=== PATIENT | male | born 1955 | race Caucasian/White ===

== ENCOUNTER → 2017-10-25 12:06 | Outpatient (CLI) | payer BC, SELFPAY ==
--- NOTE | 2017-10-25 12:17 | XR_ITS ---
XR knee RT 3V HISTORY: Right medial knee pain ITS.REASON: RT KNEE PAIN ORDERING PHYSICIAN: Ermelinda Tapia PATIENT AGE: 62 years COMPARISON: None FINDINGS: No fracture or dislocation. No lytic or blastic change. Normal mineralization. There are minimal osteoarthritic changes at the patellofemoral joint No other significant findings IMPRESSION: Minimal osteoarthritic change patellofemoral joint otherwise negative
== END ==
PROVIDERS: PCP Internal Medicine Adolescent Medicine; Visit Provider Nurse Practitioner Family
DX: M25.561 Pain in right knee (principal)
CPT/HCPCS: 73562

== ENCOUNTER 2017-12-19 11:00 | Outpatient (RCR) | payer BC, SELFPAY ==
--- NOTE | 2017-10-31 09:26 | HMH.PTOPEV ---
Rehab Outpatient Evaluation Rehab OP Evaluation Start: 10/30/17 09:29 Freq: Status: Active Protocol: Document 10/30/17 09:29 MEGHANA (Rec: 10/30/17 10:21 MEGHANA [id number]) Electronically Signed By Gurpreet Larios, PT 10/30/17 09:29 Outpatient Therapy Subjective History Subjective History Patient is a 62 year old male presenting to outpatient PT with reports of right knee pain of insidious onset starting approximately 6 months ago that has progressively gotten. No improvements with oral anti- inflammartories. Chief Complaint Pain Stiff Symptom Type Sharp Symptoms Relieved By Rest/Positioning OTC Meds Symptoms Aggravated By Standing Physical Activity Walking Prior Functional Limitations None Current Functional Limitations Housework Standing Squatting Recreation Activity Walking Stairs Bending/Stooping Symptom Description Constant but Variable Level of pain today (0-10) 0 Pain scale - at its best (0-10) 5 Pain scale - at its worst (0-10) 0 Hip/Knee Eval Gait Observation General Gait Pattern Observation Antalgic Gait Wide Based Gait Decrease Weight Bear (R) Assistive Device Assistive Devices None / NA Palpation Tenderness right Knee Palpation Finding Tenderness Knee Palpation Overall Comment Medial joint line MMT left Hip Strength Reason Not Measured WFL Knee Strength Reason Not Measured WFL right Hip Flexion Strength Grade 4 Good Hip Abduction Strength Grade 4 Good Hip Adduction Strength Grade 4- Good- Hip Extension Strength Grade 4- Good- Gluteus Travis Strength Grade 4- Good- Hip External Rotation Strength Grade 4- Good- Hip Internal Rotation Strength Grade 4- Good- Knee Extension Strength Grade 4 Good Knee Flexion Strength Grade 5 Normal Knee Extensors Muscle Tone Description Normal Knee Flexors Muscle Tone Description Normal ROM left Hip ROM Reason Not Measured Within Functional Limits Knee Extension Active Range of Motion ( -5 degrees) Knee Flexion Active Range of Motion ( 132 degrees) right Hip ROM Reason Not M
== END 2017-12-19 11:01 | disposition home or self-care (01) ==
LOC: PT 11:00
PROVIDERS: Family Provider Internal Medicine Adolescent Medicine; PCP Internal Medicine Adolescent Medicine; Visit Provider Internal Medicine Adolescent Medicine
DX: M25.561 Pain in right knee (principal)
CPT/HCPCS: 97010; 97014; 97110; 97164; G0283

== ENCOUNTER → 2018-09-23 07:07 | Outpatient (CLI) | payer MEDICARE, SELFPAY ==
[2018-09-23 07:52] LABS: Hemoglobin A1C 6.1 % (0.0-7.0)
[2018-09-23 08:32] LABS: Alanine Aminotransferase 44 U/L (12-78); Albumin Level 3.5 gm/dL (3.4-5.0); Albumin/Globulin Ratio 1.1 (1.1-1.8); Alkaline Phosphatase 48 U/L (46-116); Anion Gap 15.3 mEq/L (5-15); Aspartate Amino Transferase 16 U/L (15-37); Bilirubin,Total 0.4 mg/dL (0.2-1.0); Blood Urea Nitrogen 23 mg/dL (7-18); Carbon Dioxide 24 mmol/L (21.0-32.0); Chloride 102 mmol/L (98-107); Chol/HDL Ratio 3.6 (1-3.5); Cholesterol 154 mg/dL (140-200); Creatinine,Serum 1.09 mg/dL (0.70-1.30); Estimated Glomerular Filt Rate 68 ml/min (>60); GFR (African American) 82 ML/MIN (>60); Globulin 3.3 gm/dl (1.3-3.2); Glucose 109 mg/dL (74-106); HDL Cholesterol 43 mg/dL (27-67); LDL Cholesterol 88 mg/dL (0-130); Potassium 4.3 mmoL/L (3.5-5.1); Prostate Specific Ag Screen 0.6 ng/mL (0.0-4.0); Sodium 137 mmol/L (136-145); Total Protein,Serum 6.8 gm/dL (6.4-8.2); Triglycerides 116 mg/dL (30-200); VLDL Cholesterol 23 mg/dL (0-40)
[2018-09-24 10:17] LABS: Creatinine, Urine 101.5 mg/dL (Not Estab.); Microalbumin, Urine <3.0 ug/mL (Not Estab.)
== END ==
PROVIDERS: Visit Provider Nurse Practitioner Family
DX: E11.9 Type 2 diabetes mellitus without complications (principal); I10 Essential (primary) hypertension; Z12.5 Encounter for screening for malignant neoplasm of prostate; R35.1 Nocturia
CPT/HCPCS: 36415; 80053; 80061; 82043; 82570; 83036; G0103

== ENCOUNTER → 2018-10-11 13:26 | Outpatient (CLI) | payer MEDICARE, SELFPAY ==
[2018-10-11 13:52] LABS: Blood Urea Nitrogen 23 mg/dL (7-18); Creatinine,Serum 1.23 mg/dL (0.70-1.30); Estimated Glomerular Filt Rate 59 ml/min (>60); GFR (African American) 71 ML/MIN (>60)
--- NOTE | 2018-10-11 14:07 | CT_ITS ---
CT chest wo/w con HISTORY: Follow-up lung nodules ORDERING PHYSICIAN: Ermelinda Tapia PATIENT AGE: 63 years 719 COMPARISON: The May 02, 2016 CT chest with contrast. Also a September 2015 CT chest with contrast Technique: CT chest with and without contrast. Helical axial CT images of the chest pre and post IV contrast. 75 cc Isovue-370.. Sagittal and coronal reformatted images are also generated and reviewed. All CT scans at the facility use one or more dose reduction, viz: automated exposure control, ma/kV adjustment per patient size (including targeted exams where dose is matched to indication, i.e. head), or iterative reconstruction technique. FINDINGS: ...... LUNG TEIXEIRA. Stable with no no new areas of concern. Stable small nodular densities bilaterally RIGHT LUNG.: .Small 7.5 x less than 5 mm nodule right midlung (axial image 35 sagittal 29). Superior segment R LL located just inferior to major fissure. .Just inferior to this is a stable small less than 3.5 mm at posterior aspect superior segment RLL. Sagittal slice 27,.. .Extremely tiny 2 mm pleural-based tiny anterior RML, axial image 47.. No significant change .Calcified granuloma posterior RLL axial slice 52. Up to 7 mm size with some minimal scarring stable feature.. .Continuing inferior, at posterior sulcus (axial image 68) tiny 4 mm nodular density just on the right hemidiaphragm.-No significant change since prior study. LEFT LUNG. L UL: Tiny 3.5 mm 4 mm subpleural nodule axial slice 30. No significant change. The lingula there is a small 7 mm area of density axial image 41, 40 this reflects a linear area of scarring which appears stable since prior study as well There is a small 5 mm area of density at periphery left midlung axial image 43. Stable feature. Appears to be linear scarring on the MEDIASTINUM. No mediastinal mass nor adenopathy. No hilar adenopathy. Generous mediastinal adipose. Similar to previous study Heart normal size. Dense atherosclerotic coronary artery calcification multivessel-but most evident at LAD. No pericardial effusion. Aorta and pulmonary arteries appears satisfactory. No evidence of central PE. It JOSELITO: stable small nodes at the right suprahilar region, with tiny noted at the left mid joselito. PLEURA No pleural lesion. Airways appear satisfactory. BONE Osseous structures stable with no significant findings. Mild degenerative changes throughout the T-spine. UPPER ABDOMEN: . Fatty changes in liver. Adrenal glands appear stable generous but stable. No new findings IMPRESSION 1. Stable CT chest. Lungs clear with no active disease.. . Scattered small benign-appearing nodular densities bilaterally appear stable . Stable small hilar nodes on right appears stable ... No significant change since 2014 and 2016. 2. Mild diffuse fatty liver changes
== END ==
PROVIDERS: PCP Internal Medicine Adolescent Medicine; Visit Provider Nurse Practitioner Family
DX: R91.8 Other nonspecific abnormal finding of lung field (principal)
CPT/HCPCS: 36415; 71270; 82565; 84520; Q9967

== ENCOUNTER → 2020-02-09 11:35 | Outpatient (CLI) | payer MEDICARE, SELFPAY ==
[2020-02-09 13:36] LABS: Alanine Aminotransferase 50 U/L (12-78); Albumin Level 4.3 g/dl (3.5-5.0); Albumin/Globulin Ratio 1.6 (1.1-1.8); Alkaline Phosphatase 52 U/L (38-126); Anion Gap 13.4 mEq/L (5-15); Aspartate Amino Transferase 30 U/L (17-59); Bilirubin,Total 0.4 mg/dl (0.2-1.3); Blood Urea Nitrogen 18 mg/dl (9-20); Calcium 10.1 mg/dl (8.4-10.2); Carbon Dioxide 24 mmol/L (22.0-30.0); Chloride 102 mmol/L (98-107); Chol/HDL Ratio 1.9 (1-3.5); Cholesterol 103 mg/dl (140-200); Estimated Glomerular Filt Rate 84 ml/min (>60); GFR (African American) 102 ML/MIN (>60); Globulin 2.7 g/dL (1.3-3.2); Glucose 113 mg/dl (74-100); HDL Cholesterol 55 mg/dl (40-60); Potassium 4.4 mmoL/L (3.5-5.1); Sodium 135 mmol/L (136-145); Triglycerides 96 mg/dl (30-150); VLDL Cholesterol 19 mg/dL (0-40)
[2020-02-09 13:47] LABS: Direct LDL Cholesterol 49.91 mg/dL (100-129)
[2020-02-09 14:07] LABS: Prostate Specific Ag Screen 0.8 ng/ml (0.0-4.0)
[2020-02-09 18:43] LABS: Hemoglobin A1C 5.9 % (4.0-6.0)
[2020-02-09 20:19] LABS: Basophils # 0.1 K/mm3 (0-0.2); Basophils % 0.7 % (0.1-2.0); Eosinophils # 0.1 K/mm3 (0.0-0.4); Eosinophils % 0.9 % (0.1-12.0); Hematocrit 46.1 % (42.0-52.0); Hemoglobin 15.1 g/dL (14.1-18.0); Lymphocytes # 2.8 K/mm3 (0.7-4.5); Lymphocytes % 25.3 % (10-50); Mean Corpuscular HGB Conc 32.8 g/dL (31.8-35.4); Mean Corpuscular Hemoglobin 30.9 pg (27.0-31.2); Mean Corpuscular Volume 94.2 fl (80-94); Mean Platelet Volume 9.5 fl (7.4-10.4); Monocytes # 0.6 K/mm3 (0.1-1.0); Monocytes % 5.8 % (1.7-9.3); Neutrophils # 7.4 K/mm3 (1.8-7.8); Neutrophils % 67.4 % (37.0-80.0); Platelet Count 321 K/mm3 (142-424); Red Blood Count 4.89 M/mm3 (4.60-6.20); Red Cell Distribution Width 13.1 % (11.5-17.5); White Blood Count 10.9 K/mm3 (4.8-10.8)
== END ==
PROVIDERS: Visit Provider Nurse Practitioner Family
DX: R73.03 Prediabetes (principal); I10 Essential (primary) hypertension; E66.01 Morbid (severe) obesity due to excess calories; K21.9 Gastro-esophageal reflux disease without esophagitis; R35.1 Nocturia; Z12.5 Encounter for screening for malignant neoplasm of prostate
CPT/HCPCS: 36415; 80053; 80061; 83036; 84443; 85025; G0103

== ENCOUNTER → 2020-02-12 12:52 | Outpatient (CLI) | payer MEDICARE, SELFPAY ==
--- NOTE | 2020-02-12 12:56 | CT_ITS ---
PROCEDURE: CT LUNG SCREENING CLINICAL INDICATION: H/O NICOTINE DEPENDENCE Thirty pack-year smoking history, asymptomatic for lung cancer COMPARISON: CHESTWW CT chest wo/w con from 10/11/2018 TECHNIQUE: The exam was performed on a [employer] Speed [address] scanner using 2.90 mGy CTDI. A low dose helical CT CHEST was performed on a multi-detector scanner. All CT scans at the facility use one or more dose reduction, viz: automated exposure control, ma/kV adjustment per patient size (including targeted exams where dose is matched to indication, i.e. head), or iterative reconstruction technique. The LDCT was performed in a facility that meets the criteria for the screening program. Data regarding this exam was submitted to ACR which is an approved registry. The order for this exam indicates that it came as a result of a lung cancer screening counseling shard decision-making visit that included all the elements required of such a visit including smoking cessation. The radiologist interpreting this exam meets the CMS criteria for the LDCT lung cancer screening program. The exam is reported using the Lung-RADS classification scale and reported to the ACR registry. NOTE: This study was performed for the specific purposes of lung cancer screening and is not an alternative to diagnostic chest CT. RADIATION DOSE: CTDI vol(CT dose Index-volume) = 2.90mG DLP (Dose Length Product) = 100.29 mGcm FINDINGS: 5 mm noncalcified nodule superior segment right lower lobe series 4, image 36 unchanged. 4 mm noncalcified nodule right middle lobe series 4, image 47 unchanged there are 2 stable nodules in the right lung base posteriorly 5 mm each image 63 and image 67 series 4 unchanged. Calcified granuloma right lower lobe posteriorly 8 mm parenchymal opacity within the lingula series 4, image 40 unchanged. 3 mm fissural nodule superiorly on the left image 20 unchanged. 5 mm noncalcified nodule left lower lobe image 45 series 4 unchanged with an adjacent 3 mm nodule on the same image unchanged. Subpleural opacity left lower lobe posteriorly unchanged No suspicious nodules apparent. No new nodules OTHER FINDINGS: Coronary artery calcification IMPRESSION: Lung rads category 2 benign. Stable multiple benign-appearing nodules Recommend continued annual screening LD CT. Coronary artery disease Dictated by: Timi Palmer MD 03/04/2020 08:47 Electronically signed by Timi Palmer MD in [place] 03/04/2020 08:47
== END ==
PROVIDERS: PCP Nurse Practitioner Family; Visit Provider Nurse Practitioner Family
DX: Z87.891 Personal history of nicotine dependence (principal); Z12.2 Encounter for screening for malignant neoplasm of respiratory organs

== ENCOUNTER → 2020-10-06 07:15 | Outpatient (CLI) | payer MEDICARE, SELFPAY ==
[2020-10-06 07:46] LABS: Adenovirus,PCR Not Detected (NotDetected); Bordetella Pertussis Not Detected (NotDetected); Chlamydophila Pneumoniae, PCR Not Detected (NotDetected); Coronavirus 19, PCR Not Detected (NotDetected); Coronavirus 229E Not Detected (NotDetected); Coronavirus NL63 Not Detected (NotDetected); Coronavirus OC43 Not Detected (NotDetected); Coronovirus HKU1,PCR Not Detected (NotDetected); Human Metapneumovirus Not Detected (NotDetected); Influenza A, PCR Not Detected (NotDetected); Influenza AH1, 2009 Not Detected (NotDetected); Influenza AH1, PCR Not Detected (NotDetected); Influenza AH3,PCR Not Detected (NotDetected); Influenza B, PCR Not Detected (NotDetected); Mycoplasma Pneumoniae, PCR Not Detected (NotDetected); Parainfluenza 1, PCR Not Detected (NotDetected); Parainfluenza 2, PCR Not Detected (NotDetected); Parainfluenza 3, PCR Not Detected (NotDetected); Parainfluenza 4, PCR Not Detected (NotDetected); Respiratory Syncytial Virus Not Detected (NotDetected); Rhinovirus/Enterovirus Not Detected (NotDetected)
== END ==
PROVIDERS: PCP Nurse Practitioner Family; Visit Provider Internal Medicine Adolescent Medicine
DX: Z03.818 Encounter for observation for suspected exposure to other biological agents ruled out (principal)
CPT/HCPCS: 87581; 87633; 87798

== ENCOUNTER → 2021-04-05 09:29 | Outpatient (POV) | payer MEDICARE, SELFPAY | PROVIDERS: Visit Provider Dermatology | DX: Z00.00 Encounter for general adult medical examination without abnormal findings (principal) ==

== ENCOUNTER → 2021-05-17 07:09 | Outpatient (CLI) | payer MEDICARE, SELFPAY ==
[2021-05-17 07:37] LABS: Basophils # 0.1 K/mm3 (0-0.2); Basophils % 0.6 % (0.1-2.0); Eosinophils # 0.2 K/mm3 (0.0-0.4); Eosinophils % 1.9 % (0.1-12.0); Hematocrit 40.2 % (42.0-52.0); Hemoglobin 13.8 g/dL (14.1-18.0); Lymphocytes # 4.4 K/mm3 (0.7-4.5); Lymphocytes % 49.2 % (10-50); Mean Corpuscular HGB Conc 34.4 g/dL (31.8-35.4); Mean Corpuscular Hemoglobin 32.1 pg (27.0-31.2); Mean Corpuscular Volume 93.3 fl (80-94); Mean Platelet Volume 7.9 fl (7.4-10.4); Monocytes # 0.6 K/mm3 (0.1-1.0); Monocytes % 6.5 % (1.7-9.3); Neutrophils # 3.8 K/mm3 (1.8-7.8); Neutrophils % 41.8 % (37.0-80.0); Platelet Count 259 K/mm3 (142-424); Red Blood Count 4.31 M/mm3 (4.60-6.20); Red Cell Distribution Width 13.6 % (11.5-17.5)
[2021-05-17 08:01] LABS: Hemoglobin A1C 5.8 % (4.0-6.0)
[2021-05-17 08:47] LABS: Alanine Aminotransferase 28 U/L (12-78); Albumin/Globulin Ratio 1.7 (1.1-1.8); Alkaline Phosphatase 54 U/L (38-126); Anion Gap 13.7 mEq/L (5-15); Aspartate Amino Transferase 23 U/L (17-59); Bilirubin,Total 0.8 mg/dl (0.2-1.3); Blood Urea Nitrogen 19 mg/dl (9-20); Calcium 9.3 mg/dl (8.4-10.2); Carbon Dioxide 27 mmol/L (22.0-30.0); Chloride 102 mmol/L (98-107); Chol/HDL Ratio 2.9 (1-3.5); Cholesterol 110 mg/dl (140-200); Estimated Glomerular Filt Rate 84 ml/min (>60); GFR (African American) 102 ML/MIN (>60); Globulin 2.4 g/dL (1.3-3.2); Glucose 115 mg/dl (74-100); HDL Cholesterol 38 mg/dl (40-60); Potassium 4.7 mmoL/L (3.5-5.1); Sodium 138 mmol/L (136-145); Total Protein,Serum 6.4 g/dl (6.3-8.2); Triglycerides 138 mg/dl (30-150); VLDL Cholesterol 28 mg/dL (0-40)
[2021-05-17 09:18] LABS: Prostate Specific Ag Screen 0.9 ng/ml (0.0-4.0)
== END ==
PROVIDERS: Visit Provider Nurse Practitioner Family
DX: I10 Essential (primary) hypertension (principal); R73.03 Prediabetes; K21.9 Gastro-esophageal reflux disease without esophagitis; G47.33 Obstructive sleep apnea (adult) (pediatric); R35.1 Nocturia; Z12.5 Encounter for screening for malignant neoplasm of prostate
CPT/HCPCS: 36415; 80053; 80061; 83036; 85025; G0103

== ENCOUNTER → 2021-07-28 09:05 | Outpatient (CLI) | payer MEDICARE, SELFPAY ==
--- NOTE | 2021-07-28 09:09 | XR_ITS ---
PROCEDURE: XR SHOULDER RT MIN 2V CLINICAL INDICATION: RT ANTERIOR SHOULDER PAIN COMPARISON: CT CHESTWW CT chest wo/w con from 10/11/2018 FINDINGS: No fracture or dislocation. No lytic or blastic change. There is normal mineralization. Osteoarthritic changes are present at the acromioclavicular joint with small osteophytes at the AC joint inferiorly. Minimal osteoarthritic changes are present at the glenohumeral joint. Other findings:Small calcifications are noted in the supraclavicular region medially. IMPRESSION: Acromioclavicular arthropathy and mild glenohumeral arthropathy otherwise negative Dictated by: Timi Palmer MD 07/28/2021 09:25 Timi Palmer MD in [place] 07/28/2021 09:25
== END ==
PROVIDERS: PCP Nurse Practitioner Family; Visit Provider Nurse Practitioner Family
DX: M25.511 Pain in right shoulder (principal)
CPT/HCPCS: 73030

== ENCOUNTER → 2022-03-14 09:38 | Outpatient (POV) | payer MEDICARE, SELFPAY | PROVIDERS: Visit Provider Dermatology | DX: Z00.00 Encounter for general adult medical examination without abnormal findings (principal) ==

== ENCOUNTER → 2022-05-22 12:59 | Outpatient (CLI) | payer MEDICARE, SELFPAY ==
--- NOTE | 2022-05-22 13:05 | XR_ITS ---
FINAL REPORT CLINICAL HISTORY: RT HIP PAIN for a year FINDINGS: RIGHT HIP Two views of the right hip with an AP of the pelvis demonstrate no acute fracture or dislocation. There is mild degenerative change of both hips and the lower lumbar spine. The visualized bony structures are well aligned. There are mild vascular calcifications. IMPRESSION: Mild degenerative change with no acute bony abnormality. Reviewed, Interpreted and Dictated by Abhinav Schulz III, MD Transcribed by Aurora Faulkner Authenticated and [facility]
--- NOTE | 2022-05-22 13:05 | XR_ITS ---
FINAL REPORT CLINICAL HISTORY: RT KNEE PAIN, lateral knee pain COMPARISON: October 25, 2017 FINDINGS: Three views of the right knee reveal no evidence of fracture or dislocation. The bony alignment is normal. There is mild patellofemoral degenerative change. There is no evidence of joint effusion. No localized soft tissue abnormality is identified. IMPRESSION: Mild patellofemoral degenerative change. Reviewed, Interpreted and Dictated by Abhinav Schulz III, MD Transcribed by Aurora Faulkner Authenticated and [facility]
== END ==
PROVIDERS: PCP Nurse Practitioner Family; Visit Provider Nurse Practitioner Family
DX: M25.551 Pain in right hip (principal); M25.561 Pain in right knee
CPT/HCPCS: 73502; 73562

== ENCOUNTER → 2022-06-02 08:13 | Outpatient (CLI) | payer MEDICARE, SELFPAY ==
--- NOTE | 2022-06-02 08:18 | CT_ITS ---
FINAL REPORT CLINICAL HISTORY: PERSONAL HISTORY OF [place] USE, FORMER SMOKER, QUIT X 5 YRS AGO, SMOKED 1 PK PER DAY X 20 YRS COMPARISON: 02/12/2020 FINDINGS: Low-Dose Chest CT CTDI vol (mGy): 2.90 DLP (mGy-cm): 107.59 Axial images were obtained from the lung apex to the mid abdomen by computed tomography. Low-dose protocol was utilized. FINDINGS: CHEST: There is no axillary adenopathy. There is no hilar or mediastinal adenopathy. There is moderate to severe coronary artery calcification, stable. The heart is proper size. There is no pericardial or pleural effusion. Limited images of the upper abdomen demonstrate fatty infiltration of the liver. Lung window images demonstrate a 7 mm nodule in the anterior right lower lobe on image 41 that previously measured 7 mm. A stable 4 mm nodule is again seen in the right middle lobe on image 53. There is a 7 mm stable nodule in the lateral left lower lobe on image 52. There are multiple other small nodules that are all visually stable. There is mild scarring. There are no new masses or pulmonary nodules. IMPRESSION: S modifier: Moderate to severe coronary artery calcification. Lung RADS category 1S. Recommend 12 month follow-up low-dose chest CT. Reviewed, Interpreted and Dictated by Abhinav Schulz III, MD Transcribed by Fuentes Mix Authenticated and [facility]
== END ==
PROVIDERS: PCP Nurse Practitioner Family; Visit Provider Nurse Practitioner Family
DX: Z87.891 Personal history of nicotine dependence (principal); Z12.2 Encounter for screening for malignant neoplasm of respiratory organs
CPT/HCPCS: 71271

== ENCOUNTER → 2022-06-29 06:19 | Outpatient (CLI) | payer MEDICARE, SELFPAY ==
--- NOTE | 2022-06-29 | CA_ITS ---
APPROVED REPORT Exam: Pharmacologic Technologist: Sarah Cuellar, Ht: 5 ft 8 in Wt: 260 lbs BSA: 2.28 m2 HR: 57 bpm BP: 167/75 mmHg Medical History Medications: Pantoprazole,,,,, Atorvastatin,,,,, BisOPROLOL,,,,, Potassium,,,,, Lisinopri/HCTZ,,,,, Stress Test Details Test: LEXISCAN Reason for pharmacologic stress test: physical limitation. HR Resting HR: 56 bpm Max Heart Rate (APMHR): 151.293396 bpm Max HR Achieved: 91 bpm Target HR (85% APMHR): 128.427112 bpm % of APMHR: 60.26 Recovery HR: 74 bpm BP Resting BP: 167.0/75.0 mmHg Max BP: 181.0/72.0 mmHg Recovery BP: 175.0/74.0 mmHg ECG Resting ECG: Sinus juanjo, low voltage QRS Clinical Exercise duration: 04:03 min Highest Stage Achieved: Exercise capacity: 1.0 METs Stress ECG Conclusion Did not take AM meds Symptoms: Chest pressure, SOA, stomach & head discomfort. Arrhythmias/Ectopy: Rare PVC. ST-T Changes: No significant changes. Conclusion: Unremarkable Lexiscan stress. Myoview images reported separately. Test Summary RECOVERY 03:42 . . 70 . 175/ 74 . . REST 04:54 . . 56 . 167/ 75 . . Stage 1 01:00 . . 77 . . . . Stage 2 01:00 . . 88 . . . . Stage 3 01:00 . . 83 . 177/ 75 . . Stage 4 01:00 . . 76 . 167/ 72 . . Stage 4 01:03 . . 77 . 167/ 72 . Stop exercise at 04:03 RECOVERY 01:00 . . 79 . 171/ 76 . . RECOVERY 02:00 . . 76 . 171/ 76 . . RECOVERY 03:00 . . 74 . 170/ 77 . . RECOVERY 03:42 . . 70 . 175/ 74 . . Electronically signed by : Ayaan Steinberg MD 06/30/2022 08:28:59
--- NOTE | 2022-06-29 06:30 | NM_ITS ---
APPROVED REPORT Exam: Nuclear Stress Test Indication: short of breath Patient Location: Outpatient Stress Tech: Sarah Tello SC Tech:TITA Sheikh RT(R)(N) Ht: 5 ft 8 in Wt: 250 lbs HR: 56 bpm BP: 167/75 mmHg BSA: 2.25 m2 TID: 1.24 BMI: 38.0 History: short of breath Procedure: Patient received a 0.4 mg of intravenous Lexiscan, resting heart rate 56 bpm, resting blood pressure 167/75 mmHg, with Lexiscan maximum heart rate achived was 91 bpm which is Less than 85 % of the maximum predicted heart rate and blood pressure was 181/72 mmHg. With Lexiscan, patient denied any complaint of chest pain. Electrocardiogram Resting electrocardiogram shows sinus rhythm, with Lexiscan there is less than 1.[address] segment depression noted from the baseline EKG. The EKG portion of the Lexiscan is nondiagnostic. Cardiac Stress and Resting SPECT Images: Cardiac Stress and Resting SPECT images were obtained using technetium 99m Myoview 30.9 mCi stress and 9.84 mCi at rest. Gated SPECT analysis of segmental wall motion and calculation of the ejection fraction also done. Prone images were also obtained. Cardiac stress and rest SPECT images show uniform myocardial activity without segmental perfusion abnormality, computer derived ejection fraction is 58% with no regional wall motion abnormality, right ventricle is normal size and contractility. Conclusion: 1. The EKG portion of the Lexiscan is nondiagnostic. 2. No scintigraphic evidence of reversible ischemia seen, computer derived ejection fraction is 58% with no regional wall motion abnormality, right ventricle is normal size and contractility. 3. Normal Lexiscan Myoview study. Electronically signed by : Ayaan Steinberg MD 06/30/2022 08:31:35
== END ==
PROVIDERS: PCP Nurse Practitioner Family; Visit Provider Nurse Practitioner Family
DX: R06.02 Shortness of breath (principal); I25.10 Atherosclerotic heart disease of native coronary artery without angina pectoris
CPT/HCPCS: 78452; 93017; A9502; J2785

== ENCOUNTER → 2022-07-15 08:10 | Outpatient (CLI) | payer MEDICARE, SELFPAY | PROVIDERS: PCP Nurse Practitioner Family; Visit Provider Surgery | DX: Z01.812 Encounter for preprocedural laboratory examination (principal); Z20.822 Contact with and (suspected) exposure to COVID-19; Z12.11 Encounter for screening for malignant neoplasm of colon | CPT/HCPCS: C9803; U0003; U0005 ==

== ENCOUNTER 2022-07-18 07:47 | Day surgery (SDC) | payer MEDICARE, SELFPAY ==
[2022-07-17 08:31] VITALS: BMI 38.7
[2022-07-18 07:57] VITALS: BP 147/71; PULSE 59; RESP 18; TEMP 36.6; O2SAT 94
--- NOTE | 2022-07-18 08:22 | EXP.ANES.CKL ---
PFSH PFSH Medical History Hyperlipidemia Hypertension Skin cancer Surgical History History of appendectomy History of hernia surgery History of rotator cuff surgery Hx of carpal tunnel repair Hx of cataract surgery Family History Father Family history of myocardial infarction Social History Smoking Status: Never smoker alcohol intake: never substance use type: denies use current occupational status: other Travel in the last 8 weeks: None caffeine: Yes [facility] Anesthesia Checklist Patient Identification Patient Identification: Arm Band Structural Data Admitted From: Home Planned Operative Procedure/s: colonoscopy Consent for Planned Operative Procedure(s) Verified: Yes Verified Documents: Surgical Consent and History and Physical NPO Status Verified Time NPO: 00:00 Additional verifications Anesthesia Reactions: No Airway Assessment C-Spine Mobility Assessed: Yes TMJ Mobility Assessed: Yes Dentition: Good Dentition Neurological Assessment Level of Consciousness: Awake and Alert Anesthesia Plan Anesthesia Risk discussed: Yes Anesthesia Plan: Verified ASA Class: II Anesthesia Type: MAC
[2022-07-18 08:46] VITALS: O2SAT 94
--- NOTE | 2022-07-18 08:58 | EXP.ANES.I ---
[facility] Anesthesia Record Part I Anesthesia Record I Intake, IV Amount: 1,400 Estimated blood loss (mL): 1,200 Urine output (mL): 100 Blood Products used (#): none Blood Pressure: 168/95 SaO2: 97 Pulse Rate: 102 Respiratory Rate: 16 Temperature: 97 F Patient is:: Awake and Stable Stable to PACU at:: 08:50
--- NOTE | 2022-07-18 09:29 | HMH.SCOPE ---
Procedure: Date: 07/18/22 Patient Date of :: 1955 Procedure Performed:: Colonoscopy with polypectomy Indications:: History of polyps Performing Provider:: Eliazar Dowling MD Referring Provider:: . Sedation:: Monitored anesthesia care Procedure:: After informed consent was obtained the patient was taken to the endoscopy suite. Sedation ensued after the patient was transferred to the left lateral decubitus position. Pulse, blood pressure, and oxygen saturation were monitored throughout the procedure. Digital rectal exam revealed no significant abnormality. The colonoscope was placed in position. The entire colon was evaluated. The colonoscope was carefully removed and the patient was transferred to recovery in stable condition. Please see findings and specimens below for detail. Findings:: Bowel preparation moderate Profound lack of relaxation Scattered sigmoid diverticulosis Multiple hyperplastic-appearing polyps throughout rectum and sigmoid colon Polyps (see specimens) Specimens:: Transverse colon polyp (cold snare) Polyp at 60 cm (cold snare) Recommendations:: Timing of repeat colonoscopy is pending pathology but likely be between 2-3 years. Consider barium enema in near future secondary to profound lack of relaxation. Complications:: No immediate Estimated blood obtained (mL): 1
[2022-07-18 09:37] VITALS: BP 118/68; PULSE 65; RESP 16; TEMP 36.6; O2SAT 91
[2022-07-18 09:47] VITALS: BP 137/78; PULSE 60; RESP 16; TEMP 36.6; O2SAT 93
[2022-07-18 09:57] VITALS: BP 144/65; PULSE 68; RESP 16; TEMP 36.6; O2SAT 95
[2022-07-18 10:07] VITALS: BP 150/75; PULSE 56; RESP 16; TEMP 36.6; O2SAT 94
== END 2022-07-18 10:07 | disposition home or self-care (01) ==
PROVIDERS: PCP Nurse Practitioner Family; Visit Provider Surgery
PROC: 0DJD8ZZ Inspection of Lower Intestinal Tract, Via Natural or Artificial Opening Endoscopic (ICD-10-PCS; principal; 2022-07-18 09:00)
DX: Z12.11 Encounter for screening for malignant neoplasm of colon (principal); Z86.010 Personal history of colon polyps; K63.5 Polyp of colon; Z79.899 Other long term (current) drug therapy
CPT/HCPCS: 45385; J2704

== ENCOUNTER → 2022-09-26 09:33 | Outpatient (POV) | payer MEDICARE, SELFPAY | PROVIDERS: Visit Provider Dermatology | DX: Z00.00 Encounter for general adult medical examination without abnormal findings (principal) ==

== ENCOUNTER → 2022-09-27 09:42 | Outpatient (CLI) | payer MEDICARE, SELFPAY ==
--- NOTE | 2022-09-27 09:47 | FL_ITS ---
FINAL REPORT CLINICAL HISTORY: . unsuccessful colonscopy 5:03 fluoro time FINDINGS: BARIUM ENEMA HISTORY: Incomplete colonoscopy. PROCEDURE: Single-contrast barium was introduced by gravity drip. Spot and overhead films were obtained. FINDINGS: Filteration Operator film is unremarkable. Examination is limited secondary to air within the colon and poor distention. There is moderate diverticulosis of the distal colon. Otherwise, no constricting lesion is identified. The patient has an incompetent ileocecal valve. IMPRESSION: Diverticulosis without constricting lesion identified. FLUOROSCOPY TIME: 5 minutes 3 seconds. 15 radiographs were obtained. Films reviewed , interpreted and dictated by Dr. Schulz. Transcribed by Estuardo Knowles PA-C. Reviewed, Interpreted and Dictated by Abhinav Schulz III, MD Transcribed by ELIZABETH Contreras Authenticated and [facility]
== END ==
PROVIDERS: PCP Nurse Practitioner Family; Visit Provider Surgery
DX: Z86.010 Personal history of colon polyps (principal); Z98.890 Other specified postprocedural states
CPT/HCPCS: 74270

== ENCOUNTER → 2023-01-05 12:53 | Outpatient (CLI) | payer MEDICARE, SELFPAY ==
--- NOTE | 2023-01-05 13:01 | MR_ITS ---
FINAL REPORT CLINICAL HISTORY: PSIN IN RIGHT KNEE RIGHT KNEE PAIN X 1 MONTH FINDINGS: Multi planar MR imaging was performed of the right knee. The anterior and posterior cruciate ligaments are intact. The quadriceps and patellar tendons are intact. The medial and lateral menisci are intact without evidence of tear. The medial and lateral collateral ligaments appear intact. The medial and lateral retinacula appear intact. There is no evidence of bone marrow edema or osteochondral defect. No evidence of soft tissue inflammatory reaction. IMPRESSION: No evidence of significant internal derangement. Reviewed, Interpreted and Dictated by Theron Granados MD Transcribed by Yoselin Alas Authenticated and [facility]
== END ==
PROVIDERS: PCP Nurse Practitioner Family; Visit Provider Nurse Practitioner Family
DX: M25.561 Pain in right knee (principal); M25.361 Other instability, right knee; G89.29 Other chronic pain
CPT/HCPCS: 73721

== ENCOUNTER → 2023-01-30 13:56 | Outpatient (CLI) | payer MEDICARE, SELFPAY ==
--- NOTE | 2023-01-30 13:59 | XR_ITS ---
FINAL REPORT CLINICAL HISTORY: Hip pain FINDINGS: Right hip Four views were obtained. There is no acute fracture or dislocation. There are mild degenerative changes. Mild vascular calcification is identified. IMPRESSION: Mild degenerative changes. Reviewed, Interpreted and Dictated by Abhinav Schulz III, MD Transcribed by May Michaels Authenticated and [facility]
== END ==
PROVIDERS: PCP Nurse Practitioner Family; Visit Provider Orthopaedic Surgery
DX: M25.551 Pain in right hip (principal)
CPT/HCPCS: 73502

== ENCOUNTER → 2023-06-22 13:38 | Outpatient (CLI) | payer MEDICARE, SELFPAY ==
--- NOTE | 2023-06-22 13:44 | CA_ITS ---
FINAL REPORT TECHNIQUE: Color Doppler, duplex Doppler and compression sonography of the left lower extremity deep venous systems was performed. CLINICAL HISTORY: REDNESS/PAIN LT PROXIMAL FOLEY,S/P BACK SURGERY 2 WKS AGO,EDEMA COMPARISON: None FINDINGS: There is no evidence of deep venous thrombosis from the level of the groin to the calf. The veins are patent and compressible. There is a superficial thrombophlebitis seen in the proximal left foley in the area of complaint. IMPRESSION: No evidence of deep venous thrombosis left lower extremity. Superficial thrombophlebitis proximal left foley. Reviewed, Interpreted and Dictated by Abhinav Schulz III, MD Transcribed by Rosa Person Authenticated and . [facility]
== END ==
PROVIDERS: PCP Nurse Practitioner Family; Visit Provider Internal Medicine Adolescent Medicine
DX: R60.0 Localized edema (principal)
CPT/HCPCS: 93971

== ENCOUNTER → 2023-08-06 13:50 | Outpatient (CLI) | payer MEDICARE, SELFPAY ==
--- NOTE | 2023-08-06 13:54 | CT_ITS ---
FINAL REPORT CLINICAL HISTORY: TOBACCO USE FORMER SMOKER , QUIT 5 YEARS AGO, 1PPD X50 YEARS COMPARISON: 06/02/2022 FINDINGS: CTDI vol (mGy): 2.90 DLP: 96.[address] images of the chest were obtained using the low-dose protocol for screening. There is no evidence of mediastinal or hilar mass or adenopathy. No axillary mass or adenopathy is identified. On the lung window images, multiple nodules are again seen including 1 near the right major fissure measuring 7 mm on image 36, a nodule just inferolateral to this measuring 4 mm on image 40 and a lateral left lower lobe nodule measuring 6 mm on image 42. All of which are stable from prior exam. There are several other smaller stable nodules. Severe left coronary artery calcifications are noted. IMPRESSION: Stable bilateral pulmonary nodules and severe left coronary artery calcifications. Lung RADS category 1S . Recommend 12 month followup low-dose CT for further evaluation. Reviewed, Interpreted and Dictated by Abhinav Schulz III, MD Transcribed by Yoselin Alas Authenticated and [facility]
== END ==
PROVIDERS: PCP Nurse Practitioner Family; Visit Provider Nurse Practitioner Family
DX: Z87.891 Personal history of nicotine dependence (principal)
CPT/HCPCS: 71271

== ENCOUNTER 2023-12-07 17:43 | Emergency (ER) | payer MEDICARE, SELFPAY ==
--- NOTE | 2023-12-07 18:20 | EXP.UTC ---
Discharge Plan Disposition Patient Disposition: Home, Self-Care Condition: Good Prescriptions Prescriptions: New azithromycin [Zithromax] 250 mg tablet 250 mg PO UD DOSE PK Qty: 6 0RF Rx Instructions: Take two (2) tablets today, then one (1) tablet days #2 thru #5 benzonatate [benzonatate] 100 mg capsule 100 mg PO TIDP PRN (Reason: Cough) Qty: 30 0RF methylprednisolone 4 mg Tablets,Dose Pack 4 mg PO DIRECTED 6 Days Qty: 21 0RF Rx Instructions: Take 1 pack as directed for 6 days guaifenesin [Mucinex] 600 mg tablet extended release 12hr 600 - 1,200 mg PO BIDP PRN (Reason: Congestion) Qty: 30 0RF No Action pantoprazole 40 mg tablet,delayed release (DR/EC) 40 mg PO DAILY metoprolol succinate 50 mg tablet extended release 24 hr 50 mg PO DAILY gabapentin 300 mg capsule 300 mg PO TIDP PRN (Reason: Pain) Patient Comments: TAKE 1 CAPSULE BY MOUTH THREE TIMES DAILY NEEDED FOR PAIN aspirin 81 mg Tablet,Chewable 81 mg PO DAILY atorvastatin 20 MG tablet 20 mg PO DAILY Patient Comments: take 1 tablet by mouth once daily potassium chloride 10 MEQ tablet extended release 10 meq PO BID lisinopril-hydrochlorothiazide 1 EACH tablet 1 tab PO DAILY Referrals Follow up/Referrals: Ermelinda Tapia APRN [Primary Care Provider] - See instructions Activity Restrictions/Add. Instructions Additional Instructions/Restrictions: Drink plenty of fluids. Take tylenol or ibuprofen for pain or fever. Take the medications as directed. Follow up with your regular doctor. GO TO THE ER FOR ANY WORSENING SYMPTOMS Clinical Impressions Clinical Impression: Pharyngitis, Sinusitis Instructions Patient Instructions: Sore Throat, DI for Pharyngitis/Tonsillopharyngitis -- Adult, DI for Sinusitis Discharge ED Provider: Toby Martinez [facility] [place] HPI General Stated complaint: sore throat, congestion Time Seen by Provider: 12/07/23 18:20 History of Present Illness Provider Complaint: He states that for the past 4 days he has had sore throat, chills, malaise, and low grade fever. Related Data Home Medications Medication Instructions Recorded Confirmed atorvastatin 20 mg tablet 20 mg PO DAILY Cholesterol 10/27/19 12/07/23 lisinopril 20 1 tab PO DAILY Hypertension 10/27/19 12/07/23 mg-hydrochlorothiazide 25 mg tablet potassium chloride 10 mEq 10 meq PO BID Supplement 10/27/19 12/07/23 tablet,extended release metoprolol succinate 50 mg 50 mg PO DAILY 01/30/23 12/07/23 tablet,extended release 24 hr pantoprazole 40 mg tablet,delayed 40 mg PO DAILY 01/30/23 12/07/23 release aspirin 81 mg chewable tablet 81 mg PO DAILY 12/07/23 12/07/23 gabapentin 300 mg capsule 300 mg PO TIDP PRN Pain 12/07/23 12/07/23 Previous Rx's Medication Instructions Recorded azithromycin 250 mg tablet 250 mg PO UD DOSE PK #6 tabs 12/07/23 (Zithromax) benzonatate 100 mg capsule 100 mg PO TIDP PRN Cough #30 caps 12/07/23 guaifenesin 600 mg tablet, 600 - 1,200 mg PO BIDP PRN 12/07/23 extended release 12 hr (Mucinex) Congestion #30 tabs methylprednisolone 4 mg tablets in 4 mg PO DIRECTED 6 days #21 tabs 12/07/23 a dose pack Allergies Allergy/AdvReac Type Severity Reaction Status Date / Time No Known Allergies Allergy Verified 10/22/23 08:15 [facility] Disclaimer: The information contained in this section may have been updated after the patient was seen, as this information can be updated by other users. Medical History (Updated 12/07/23 @ 19:15 by Toby Martinez APRN) Hyperlipidemia Hypertension Skin cancer Surgical History (Updated 10/22/23 @ 08:16 by Elvira Krueger MA) History of appendectomy History of back surgery History of colonoscopy History of hernia surgery History of rotator cuff surgery Hx of carpal tunnel repair Hx of cataract surgery Family History Father Family history of myocardial infarction Social History Smoking Status: Never smoker alcohol intake: never substance use type: denies use current occupational status: other Travel in the last 8 weeks: None caffeine: Yes ROS Obtained: Yes All systems reviewed & no additional complaints except as documented Constitutional Constitutional: Reports chills and Reports fever(s) Eyes Eyes: Denies eye discharge ENT Ears, Nose, Mouth, and Throat: Reports as per HPI Cardiovascular Cardiovascular: Denies chest pain Respiratory Respiratory: Denies chest congestion and Reports cough Gastrointestinal Gastrointestingal: Reports nausea; Denies abdominal pain, constipation, cramping, diarrhea or vomiting Musculoskeletal Musculoskeletal: Denies arthralgias Integumentary/Breasts Skin/Breast: Denies rash Neurologic Neurologic: Denies paresthesias Physical Exam General General appearance: alert and in no apparent distress Head Head exam: atraumatic, normocephalic and normal inspection Eye Eye exam: Present normal appearance, PERRL and EOMI ENT ENT exam: Present mucous membranes moist and normal external ear exam Expanded ENT Exam TM/Canal exam: Bilateral TM: erythema and bulging Nose exam: Absent sinus tenderness Mouth exam: Present normal external inspection; Absent drooling Teeth exam: Present normal inspection Throat exam: Present tonsillar erythema, tonsillomegaly and tonsillar exudate Neck Neck exam: Present normal inspection, full ROM and trachea midline; Absent tenderness, meningismus or lymphadenopathy Chest Chest inspection: Present normal inspection and symmetric chest wall rise; Absent tenderness Respiratory Respiratory exam: Present normal lung sounds bilaterally; Absent respiratory distress, wheezes or stridor Cardiovascular Cardiovascular exam: Present regular rate and normal rhythm; Absent systolic murmur or diastolic murmur Abdominal Exam Abdominal exam: Present soft and normal bowel sounds; Absent distention, tenderness, guarding, rebound or rigidity Extremities Exam Extremities exam: Present normal inspection and normal capillary refill; Absent calf tenderness Back Exam Back exam: Present normal inspection and full ROM; Absent tenderness, CVA tenderness (R) or CVA tenderness (L) Neurological Exam Neurological exam: Present alert, oriented X3 and CN II-XII intact Psychiatric Psychiatric exam: Present normal affect and normal mood Skin Skin exam: Present warm, dry, intact and normal color Medical Decision Making Medical Records Medical records reviewed: No I reviewed the patient's medical records. Victor [place] Inquiry Pt receiving controlled substance: No Lab Data Lab results reviewed: Yes I reviewed the patient's lab results.
[2023-12-07 18:25] VITALS: BP 159/93; PULSE 81; RESP 18; TEMP 36.9; O2SAT 98; BMI 39.5
[2023-12-07 18:44] LABS: UTC Strep Screen (Rapid) Negative (Negative)
[2023-12-07 19:09] LABS: UTC Influenza A Antigen Negative (Negative); UTC Influenza B Antigen Negative (Negative)
[2023-12-07 19:17] VITALS: BP 159/93; PULSE 81; RESP 18; TEMP 36.9; O2SAT 98
[2023-12-07] MEDS: DEXAMETHASONE 4MG/ML 1ML VIAL 8 MG IM (19:22)
== END 2023-12-07 19:31 | disposition home or self-care (01) ==
PROVIDERS: Emergency Provider Nurse Practitioner Family; PCP Nurse Practitioner Family
DX: J02.9 Acute pharyngitis, unspecified (principal); J01.90 Acute sinusitis, unspecified; R50.9 Fever, unspecified; R09.81 Nasal congestion; I10 Essential (primary) hypertension; E78.5 Hyperlipidemia, unspecified
CPT/HCPCS: 87804; 87880; 96372; 99204; 99212; G0463

== ENCOUNTER 2023-12-23 13:14 | Emergency (ER) | payer MEDICARE, SELFPAY ==
[2023-12-23 13:15] VITALS: BP 108/67; PULSE 78; RESP 18; TEMP 36.6; O2SAT 95; BMI 39.5
[2023-12-23 13:48] LABS: UTC Influenza A Antigen Negative (Negative); UTC Strep Screen (Rapid) Negative (Negative)
[2023-12-23 13:49] LABS: UTC Influenza B Antigen Negative (Negative)
--- NOTE | 2023-12-23 14:08 | EXP.UTC ---
Discharge Plan Disposition Patient Disposition: Home, Self-Care Condition: Good Prescriptions Prescriptions: New methylprednisolone 4 mg Tablets,Dose Pack 4 mg PO DIRECTED 6 Days Qty: 21 0RF Rx Instructions: Take 1 pack as directed for 6 days guaifenesin [Mucinex] 600 mg tablet extended release 12hr 600 - 1,200 mg PO BIDP PRN (Reason: Congestion) Qty: 30 0RF benzonatate 100 mg capsule 100 mg PO TIDP PRN (Reason: Cough) Qty: 30 0RF cefdinir 300 mg capsule 300 mg PO BID Qty: 20 0RF No Action pantoprazole 40 mg tablet,delayed release (DR/EC) 40 mg PO DAILY metoprolol succinate 50 mg tablet extended release 24 hr 50 mg PO DAILY gabapentin 300 mg capsule 300 mg PO TIDP PRN (Reason: Pain) Patient Comments: TAKE 1 CAPSULE BY MOUTH THREE TIMES DAILY NEEDED FOR PAIN aspirin 81 mg Tablet,Chewable 81 mg PO DAILY azithromycin [Zithromax] 250 mg tablet 250 mg PO UD DOSE PK Qty: 6 0RF Rx Instructions: Take two (2) tablets today, then one (1) tablet days #2 thru #5 benzonatate [benzonatate] 100 mg capsule 100 mg PO TIDP PRN (Reason: Cough) Qty: 30 0RF methylprednisolone 4 mg Tablets,Dose Pack 4 mg PO DIRECTED 6 Days Qty: 21 0RF Rx Instructions: Take 1 pack as directed for 6 days guaifenesin [Mucinex] 600 mg tablet extended release 12hr 600 - 1,200 mg PO BIDP PRN (Reason: Congestion) Qty: 30 0RF atorvastatin 20 MG tablet 20 mg PO DAILY Patient Comments: take 1 tablet by mouth once daily potassium chloride 10 MEQ tablet extended release 10 meq PO BID lisinopril-hydrochlorothiazide 1 EACH tablet 1 tab PO DAILY Referrals Follow up/Referrals: Ermelinda Tapia APRN [Primary Care Provider] - See instructions Activity Restrictions/Add. Instructions Additional Instructions/Restrictions: Drink plenty of fluids. Take tylenol or ibuprofen for pain or fever. Take the medications as directed. Follow up with your regular doctor. GO TO THE ER FOR ANY WORSENING SYMPTOMS Don't start the oral steroids until tomorrow since you had the steroid shot here today. Clinical Impressions Clinical Impression: Acute bronchitis Qualifiers: Bronchitis organism: unspecified organism Qualified Code(s): J20.9 - Acute bronchitis, unspecified Instructions Patient Instructions: DI for Acute Bronchitis, Ceftriaxone Injection, Dexamethasone Injection Discharge ED Provider: Toby Martinez [facility] General Stated complaint: cough congestion fever Mode of Arrival: Ambulatory Source of Information: Patient Limitations: No Limitations Time Seen by Provider: 12/23/23 13:50 Description of Symptoms (Recalled from Triage Doc. by RN): Pt's symptoms are sore throat, coughing, and body aches. HEENT Symptoms (Recalled from RN notes): Yes Resp Symptoms (Recalled from RN notes): No Skin Symptoms (Recalled from RN notes): No MS Symptoms (Recalled from RN notes): No Functional Status (Recalled from RN notes): n/a History of Present Illness Provider Complaint: He states that for the past 2 days he has had worsening chest congestion, productive cough with yellowish sputum, and malaise. Related Data Home Medications Medication Instructions Recorded Confirmed atorvastatin 20 mg tablet 20 mg PO DAILY Cholesterol 10/27/19 12/07/23 lisinopril 20 1 tab PO DAILY Hypertension 10/27/19 12/07/23 mg-hydrochlorothiazide 25 mg tablet potassium chloride 10 mEq 10 meq PO BID Supplement 10/27/19 12/07/23 tablet,extended release metoprolol succinate 50 mg 50 mg PO DAILY 01/30/23 12/07/23 tablet,extended release 24 hr pantoprazole 40 mg tablet,delayed 40 mg PO DAILY 01/30/23 12/07/23 release aspirin 81 mg chewable tablet 81 mg PO DAILY 12/07/23 12/07/23 gabapentin 300 mg capsule 300 mg PO TIDP PRN Pain 12/07/23 12/07/23 Previous Rx's Medication Instructions Recorded azithromycin 250 mg tablet 250 mg PO UD DOSE PK #6 tabs 12/07/23 (Zithromax) benzonatate 100 mg capsule 100 mg PO TIDP PRN Cough #30 caps 12/07/23 guaifenesin 600 mg tablet, 600 - 1,200 mg (1 - 2 x 600 mg) PO 12/07/23 extended release 12 hr (Mucinex) BIDP PRN Congestion #30 tabs methylprednisolone 4 mg tablets in 4 mg PO DIRECTED 6 days #21 tabs 12/07/23 a dose pack benzonatate 100 mg capsule 100 mg PO TIDP PRN Cough #30 caps 12/23/23 cefdinir 300 mg capsule 300 mg PO BID #20 caps 12/23/23 guaifenesin 600 mg tablet, 600 - 1,200 mg (1 - 2 x 600 mg) PO 12/23/23 extended release 12 hr (Mucinex) BIDP PRN Congestion #30 tabs methylprednisolone 4 mg tablets in 4 mg PO DIRECTED 6 days #21 tabs 12/23/23 a dose pack Allergies Allergy/AdvReac Type Severity Reaction Status Date / Time No Known Allergies Allergy Verified 12/23/23 13:54 Worker's Comp Is this a Worker's Comp case?: No [facility] Disclaimer: The information contained in this section may have been updated after the patient was seen, as this information can be updated by other users. Medical History (Updated 12/23/23 @ 14:45 by Toby Martinez APRN) Skin cancer Hypertension Hyperlipidemia Surgical History History of back surgery History of colonoscopy Hx of cataract surgery Hx of carpal tunnel repair History of rotator cuff surgery History of hernia surgery History of appendectomy Family History Father Family history of myocardial infarction Social History Smoking Status: Never smoker alcohol intake: never substance use type: denies use current occupational status: other Travel in the last 8 weeks: None caffeine: Yes ROS Obtained: Yes All systems reviewed & no additional complaints except as documented Constitutional Constitutional: Reports poor appetite Eyes Eyes: Reports system reviewed and no additional complaints, except as documented ENT Ears, Nose, Mouth, and Throat: Reports as per HPI Cardiovascular Cardiovascular: Reports system reviewed and no additional complaints, except as documented and Denies chest pain Respiratory Respiratory: Denies shortness of breath, Denies chest congestion, Reports cough, Denies stridor and Denies wheezing Gastrointestinal Gastrointestingal: Reports system reviewed and no additional complaints, except as documented; Denies abdominal pain, diarrhea or vomiting Musculoskeletal Musculoskeletal: Reports system reviewed and no additional complaints, except as documented and Denies arthralgias Integumentary/Breasts Skin/Breast: Reports system reviewed and no additional complaints, except as documented and Denies rash Neurologic Neurologic: Denies paresthesias Allergic/Immunologic Allergic/Immunologic: Denies wheezing Physical Exam General General appearance: alert and in no apparent distress Eye Eye exam: Present normal appearance, PERRL and EOMI ENT ENT exam: Present mucous membranes moist and normal external ear exam Expanded ENT Exam External ear exam: Present normal external inspection TM/Canal exam: Bilateral TM: erythema and bulging Nose exam: Absent sinus tenderness Nasal speculum exam: Bilateral: normal Mouth exam: Present normal external inspection; Absent drooling Teeth exam: Present normal inspection Throat exam: Present tonsillar erythema and tonsillomegaly Neck Neck exam: Present normal inspection, full ROM and trachea midline; Absent tenderness, lymphadenopathy or thyromegaly Chest Chest inspection: Present normal inspection and symmetric chest wall rise; Absent tenderness or rash Respiratory Respiratory exam: Present normal lung sounds bilaterally; Absent respiratory distress, wheezes, stridor or accessory muscle use Cardiovascular Cardiovascular exam: Present regular rate, normal rhythm and normal heart sounds Abdominal Exam Abdominal exam: Present soft; Absent distention, tenderness, guarding, rebound or rigidity Extremities Exam Extremities exam: Present normal inspection, full ROM and normal capillary refill; Absent tenderness or calf tenderness Back Exam Back exam: Present normal inspection and full ROM; Absent tenderness Neurological Exam Neurological exam: Present alert and oriented X3 Psychiatric Psychiatric exam: Present normal affect and normal mood Skin Skin exam: Present warm, dry, intact and normal color Lymphatic Lymphatic Findings: no adenopathy Medical Decision Making Medical Records Medical records reviewed: No I reviewed the patient's medical records. Victor [place] Inquiry Pt receiving controlled substance: No Vital Signs: 12/23/23 13:15 Temperature 97.8 F Temperature Source Oral Pulse Rate [Right Radial] 78 Respiratory Rate 18 Blood Pressure [Right Arm] 108/67 L Blood Pressure Mean [Right Arm] 80 Blood Pressure Source [Right Arm] Automatic Cuff Blood Pressure Position [Right Arm] Sitting 02 Sat by Pulse Oximetry 95 Oxygen Delivery Method Room Air Lab Data Lab results reviewed: Yes I reviewed the patient's lab results. Lab Results 12/23/23 13:33: Influenza Type A Ag Negative, Influenza Type B Ag Negative, Strep Scn Rapid Clinic Negative Orders (Tests/Meds): ORDERS Category Date Time Status Strep Screen Confirmation Stat Micro 12/23/23 13:33 Received
[2023-12-23] MEDS: DEXAMETHASONE 4MG/ML 1ML VIAL 8 MG IM (14:16)
[2023-12-23] MEDS: cefTRIAXone 1GM VIAL 1 GM IM (14:16)
[2023-12-23] MEDS: LIDOCAINE 1% 5ML PF VIAL IM (14:16)
[2023-12-23 14:47] VITALS: BP 108/67; PULSE 78; RESP 18; TEMP 36.6; O2SAT 95
== END 2023-12-23 14:47 | disposition home or self-care (01) ==
PROVIDERS: Emergency Provider Nurse Practitioner Family; PCP Nurse Practitioner Family
DX: J20.9 Acute bronchitis, unspecified (principal); R05.9 Cough, unspecified; R09.81 Nasal congestion; R50.9 Fever, unspecified; R07.0 Pain in throat; R53.81 Other malaise; I10 Essential (primary) hypertension; E78.5 Hyperlipidemia, unspecified
CPT/HCPCS: 87804; 87880; 96372; 99212; 99214; G0463; J0696

== ENCOUNTER 2023-12-27 10:00 | Outpatient (RCR) | payer MEDICARE, SELFPAY | END 2023-12-27 11:30 | disposition home or self-care (01) | LOC: PT 10:00 | PROVIDERS: PCP Nurse Practitioner Family; Visit Provider Orthopaedic Surgery | DX: M16.11 Unilateral primary osteoarthritis, right hip (principal); Z96.641 Presence of right artificial hip joint; M43.16 Spondylolisthesis, lumbar region; I15.9 Secondary hypertension, unspecified; G89.18 Other acute postprocedural pain | CPT/HCPCS: 20560; 97010; 97014; 97016; 97110; 97163; 97164; 97530; G0283 ==

== ENCOUNTER 2024-05-15 07:04 | Outpatient (CLI) | payer MEDICARE, SELFPAY ==
[2024-05-15 07:41] LABS: Basophils # 0.1 K/mm3 (0-0.2); Basophils % 0.8 % (0.1-2.0); Eosinophils # 0.1 K/mm3 (0.0-0.4); Eosinophils % 1.4 % (0.1-12.0); Hematocrit 43.7 % (42.0-52.0); Hemoglobin 14.4 g/dL (14.1-18.0); Lymphocytes % 45.5 % (10-50); Mean Corpuscular HGB Conc 32.9 g/dL (31.8-35.4); Mean Corpuscular Hemoglobin 31.4 pg (27.0-31.2); Mean Corpuscular Volume 95.6 fl (80-94); Mean Platelet Volume 8.3 fl (7.4-10.4); Monocytes # 0.5 K/mm3 (0.1-1.0); Monocytes % 5.4 % (1.7-9.3); Neutrophils # 4.1 K/mm3 (1.8-7.8); Platelet Count 272 K/mm3 (142-424); Red Blood Count 4.57 M/mm3 (4.60-6.20); Red Cell Distribution Width 13.7 % (11.5-17.5); White Blood Count 8.8 K/mm3 (4.8-10.8)
[2024-05-15 08:38] LABS: Alanine Aminotransferase 39 U/L (12-78); Albumin/Globulin Ratio 1.7 (1.1-1.8); Alkaline Phosphatase 62 U/L (38-126); Anion Gap 11.9 mEq/L (5-15); Aspartate Amino Transferase 24 U/L (17-59); Bilirubin,Total 0.5 mg/dl (0.2-1.3); Blood Urea Nitrogen 19 mg/dl (9-20); Calcium 9.4 mg/dl (8.4-10.2); Carbon Dioxide 24 mmol/L (22.0-30.0); Chloride 107 mmol/L (98-107); Chol/HDL Ratio 2.7 (1-3.5); Cholesterol 122 mg/dl (140-200); Estimated Glomerular Filt Rate 83 ml/min (>60); GFR (African American) 101 ML/MIN (>60); Globulin 2.4 g/dL (1.3-3.2); Glucose 124 mg/dl (74-100); HDL Cholesterol 45 mg/dl (40-60); Potassium 3.9 mmoL/L (3.5-5.1); Sodium 139 mmol/L (136-145); Total Protein,Serum 6.4 g/dl (6.3-8.2); Triglycerides 104 mg/dl (30-150); VLDL Cholesterol 21 mg/dL (0-40)
[2024-05-15 09:10] LABS: Hemoglobin A1C 5.9 % (4.0-6.0)
[2024-05-15 09:55] LABS: Direct LDL Cholesterol 55.06 mg/dL (100-129)
[2024-05-15 10:17] LABS: Prostate Specific Ag Screen 1.3 ng/ml (0.0-4.0)
== END 2024-05-15 23:59 | disposition home or self-care (01) ==
LOC: LAB 07:06
PROVIDERS: PCP Nurse Practitioner Family; Visit Provider Nurse Practitioner Family
DX: I10 Essential (primary) hypertension (principal); R73.03 Prediabetes; Z12.5 Encounter for screening for malignant neoplasm of prostate; G47.33 Obstructive sleep apnea (adult) (pediatric)
CPT/HCPCS: 36415; 80053; 80061; 83036; 85025; G0103

== ENCOUNTER 2024-08-19 09:00 | Outpatient (POV) | payer MEDICARE, SELFPAY | END 2024-08-19 23:59 | disposition home or self-care (01) | LOC: SC 08-20 07:46 | PROVIDERS: Visit Provider Dermatology | DX: Z00.00 Encounter for general adult medical examination without abnormal findings (principal) ==

== ENCOUNTER 2024-11-13 08:11 | Outpatient (CLI) | payer MEDICARE, SELFPAY ==
[2024-11-13 08:36] LABS: Basophils % 0.5 % (0.1-2.0); Eosinophils # 0.1 K/mm3 (0.0-0.4); Eosinophils % 1.4 % (0.1-12.0); Hematocrit 40.9 % (42.0-52.0); Hemoglobin 13.7 g/dL (14.1-18.0); Lymphocytes # 3.7 K/mm3 (0.7-4.5); Lymphocytes % 46.5 % (10-50); Mean Corpuscular HGB Conc 33.5 g/dL (31.8-35.4); Mean Corpuscular Volume 92.5 fl (80-94); Mean Platelet Volume 9.7 fl (7.4-10.4); Monocytes # 0.7 K/mm3 (0.1-1.0); Monocytes % 8.4 % (1.7-9.3); Neutrophils # 3.4 K/mm3 (1.8-7.8); Neutrophils % 42.9 % (37.0-80.0); Platelet Count 270 K/mm3 (142-424); Red Blood Count 4.42 M/mm3 (4.60-6.20); Red Cell Distribution Width 12.7 % (11.5-17.5)
[2024-11-13 09:04] LABS: Hemoglobin A1C 6.4 % (4.0-6.0)
[2024-11-13 09:27] LABS: Alanine Aminotransferase 44 U/L (12-78); Albumin/Globulin Ratio 1.9 (1.1-1.8); Alkaline Phosphatase 62 U/L (38-126); Anion Gap 13.6 mEq/L (5-15); Aspartate Amino Transferase 30 U/L (17-59); Bilirubin,Total 0.5 mg/dl (0.2-1.3); Blood Urea Nitrogen 22 mg/dl (9-20); Calcium 9.5 mg/dl (8.4-10.2); Carbon Dioxide 25 mmol/L (22.0-30.0); Chloride 104 mmol/L (98-107); Chol/HDL Ratio 3.1 (1-3.5); Cholesterol 110 mg/dl (140-200); Estimated Glomerular Filt Rate 83 ml/min (>60); GFR (African American) 101 ML/MIN (>60); Globulin 2.1 g/dL (1.3-3.2); Glucose 125 mg/dl (74-100); HDL Cholesterol 36 mg/dl (40-60); Potassium 4.6 mmoL/L (3.5-5.1); Sodium 138 mmol/L (136-145); Total Protein,Serum 6.1 g/dl (6.3-8.2); Triglycerides 98 mg/dl (30-150); VLDL Cholesterol 20 mg/dL (0-40)
[2024-11-13 09:38] LABS: Direct LDL Cholesterol 53.42 mg/dL (100-129)
== END 2024-11-13 23:59 | disposition home or self-care (01) ==
LOC: LAB 08:14
PROVIDERS: PCP Nurse Practitioner Family; Visit Provider Nurse Practitioner Family
DX: E78.5 Hyperlipidemia, unspecified (principal); I10 Essential (primary) hypertension; R73.03 Prediabetes
CPT/HCPCS: 36415; 80053; 80061; 83036; 85025

== ENCOUNTER 2024-11-26 09:09 | Outpatient (CLI) | payer MEDICARE, SELFPAY ==
--- NOTE | 2024-11-26 09:14 | CT_ITS ---
FINAL REPORT TECHNIQUE: Thin section axial images were obtained through the lungs using a low-dose technique per lung cancer screening protocol. Reconstruction images were obtained using the axial data. Exam was performed using dose reduction technique. 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 There is a lingular nodule, measuring 8 mm in size, also stable. There are additional noncalcified pulmonary nodules seen bilaterally, which are stable. No new nodules are identified. Lymph nodes: No thoracic lymphadenopathy. Mediastinum: Heart size is normal. Prominent coronary artery calcifications are present. Pleura/pericardium: No pleural or pericardial effusion. Other: A stable small right adrenal nodule is noted. IMPRESSION: No suspicious pulmonary nodule or mass. Lung RADS: 1S, the S designation for prominent coronary artery calcifications Recommendation: 12-month follow-up LDCT Reviewed, Interpreted and Dictated by Rizwana Johnson MD Transcribed by Alice Patiño Authenticated and . [facility]
== END 2024-11-26 23:59 | disposition home or self-care (01) ==
LOC: RAD 09:10
PROVIDERS: PCP Nurse Practitioner Family; Visit Provider Nurse Practitioner Family
DX: Z87.891 Personal history of nicotine dependence (principal)
CPT/HCPCS: 71271

== ENCOUNTER 2025-02-10 06:51 | Day surgery (SDC) | payer MEDICARE, SELFPAY ==
[2025-02-09 14:12] VITALS: BMI 41.3
[2025-02-10 07:26] VITALS: BP 152/71; PULSE 84; RESP 17; TEMP 36.4; O2SAT 94
[2025-02-10] MEDS: LACTATED RINGERS 1000ML 1,000 ML 50 ML IV (07:32)
--- NOTE | 2025-02-10 07:49 | P.HP_ITS ---
HPI HPI HPI: This is a 69-year-old gentleman who presents for colonoscopy. He has a history of polyps. A colonoscopy in July 2022 was complicated by moderate bowel preparation and fairly severe lack of relaxation. Sigmoid diverticulosis and multiple hyperplastic-appearing polyps noted. Adenomas of the transverse colon and at 60 cm were excised. A follow-up barium enema revealed poor distention, moderate diverticulosis, and no mass/constricting lesions. [facility] Disclaimer: The information contained in this section may have been updated after the patient was seen, as this information can be updated by other users. Medical History (Updated 02/10/25 @ 07:51 by Eliazar Dowling MD) Tubular adenoma of colon Skin cancer Hypertension Hyperlipidemia Surgical History (Updated 02/09/25 @ 14:12 by Jazmine Tapia RN) History of total hip replacement History of back surgery History of colonoscopy Hx of cataract surgery Hx of carpal tunnel repair History of rotator cuff surgery History of hernia surgery History of appendectomy Family History Father Family history of myocardial infarction Social History (Updated 02/09/25 @ 14:10 by Jazmine Tapia RN) Smoking Status: Never smoker alcohol intake: never substance use type: denies use current occupational status: retired Travel in the last 8 weeks?: None caffeine: Yes Have you lived/traveled outside [place] in past 30 days?: No Contact w/someone who lives/traveled outside US past 30 days?: No Exposure to someone with infectious disease in past 14 days?: No Do you have a fever (greater than 100.4 F or 38 C)?: No Have you tested positive for COVID-19?: No Exposed to someone with COVID-19 in past 14 days?: No Do you have a sore throat?: No Do you have a cough?: No Do you have any weakness?: No Are you experiencing any nausea/vomitting?: No Do you have any diarrhea?: No Are you experiencing any unusual bleeding?: No Do you have any muscle aches/pain?: No Do you have any abdominal pain?: No Are you experiencing loss of taste or smell?: No Other Medical History Have you received the Pneumonia Vaccine: Yes Review of Systems Review of Systems Review of systems:: pertinent systems reviewed and negative unless documented below Meds Home Medications and Allergies Home Medications ?Medication ?Instructions ?Recorded ?Confirmed ?Type atorvastatin 20 mg tablet 20 mg PO DAILY Cholesterol 10/27/19 02/10/25 History lisinopril 20 1 tab PO DAILY Hypertension 10/27/19 02/10/25 History mg-hydrochlorothiazide 25 mg tablet potassium chloride 10 mEq 10 meq PO BID Supplement 10/27/19 02/10/25 History tablet,extended release metoprolol succinate 50 mg 50 mg PO DAILY 01/30/23 02/10/25 History tablet,extended release 24 hr pantoprazole 40 mg tablet,delayed 40 mg PO DAILY 01/30/23 02/10/25 History release aspirin 81 mg chewable tablet 81 mg PO DAILY 12/07/23 02/10/25 History gabapentin 300 mg capsule 300 mg PO HS 12/07/23 02/10/25 History multivitamin 1 tab PO DAILY 02/09/25 02/10/25 History New Prescriptions to Start Prescriptions: Allergies Allergy/AdvReac Type Severity Reaction Status Date / Time No Known Allergies Allergy Verified 02/10/25 07:21 Exam Data for Last 24 hours Vital signs and Labs for Last 24 Hours: Temp Pulse Resp BP Pulse Ox O2 Del Method 97.5 F L 84 17 152/71 H 94 L Room Air 02/10/25 07:26 02/10/25 07:26 02/10/25 07:26 02/10/25 07:26 02/10/25 07:26 02/10/25 07:26 I & O for Last 24 hours: Intake & Output 02/07/25 02/08/25 02/09/25 02/10/25 11:59 11:59 11:59 11:59 Weight 272 lb Constitutional Constitutional: no acute distress *Routine HEENT Exam Head: Present normocephalic Eye: Present EOMI ENT: Present mucous membranes moist *Routine Neck Exam Neck: Present full ROM *Routine Respiratory Exam Respiratory: Absent respiratory distress *Routine Cardiovascular Exam Cardiovascular: Absent tachycardia *Routine Abdominal Exam Abdominal: Present soft *Routine Rectal Exam Rectal:: deferred *Routine Genitalia Exam Genitalia:: deferred *Routine Extremities Exam Extremities: Present full ROM *Routine Skin Exam Skin: Absent erythema *Routine Neurological Exam Neurological: Present alert Assessment and Plan *Assessment and plan (1) History of colon polyps: Status: Acute Category: Medical Code(s): Z86.0100 - Personal history of colon polyps, unspecified Plan: Colonoscopy today I have discussed the risks and benefits including, but not limited to: Bleeding Infection Damage to surrounding tissue Inherent risks of sedation The patient agrees to proceed.
--- NOTE | 2025-02-10 07:50 | EXP.ANES.CKL ---
[facility] Disclaimer: The information contained in this section may have been updated after the patient was seen, as this information can be updated by other users. Medical History Skin cancer Hypertension Hyperlipidemia Surgical History (Updated 02/09/25 @ 14:12 by Jazmine Tapia RN) History of total hip replacement History of back surgery History of colonoscopy Hx of cataract surgery Hx of carpal tunnel repair History of rotator cuff surgery History of hernia surgery History of appendectomy Family History Father Family history of myocardial infarction Social History (Updated 02/09/25 @ 14:10 by Jazmine Tapia RN) Smoking Status: Never smoker alcohol intake: never substance use type: denies use current occupational status: retired Travel in the last 8 weeks?: None caffeine: Yes Have you lived/traveled outside US in past 30 days?: No Contact w/someone who lives/traveled outside US past 30 days?: No Exposure to someone with infectious disease in past 14 days?: No Do you have a fever (greater than 100.4 F or 38 C)?: No Have you tested positive for COVID-19?: No Exposed to someone with COVID-19 in past 14 days?: No Do you have a sore throat?: No Do you have a cough?: No Do you have any weakness?: No Are you experiencing any nausea/vomitting?: No Do you have any diarrhea?: No Are you experiencing any unusual bleeding?: No Do you have any muscle aches/pain?: No Do you have any abdominal pain?: No Are you experiencing loss of taste or smell?: No [facility] Anesthesia Checklist Patient Identification Patient Identification: Arm Band Structural Data Admitted From: Home Planned Operative Procedure/s: Colonoscopy Consent for Planned Operative Procedure(s) Verified: Yes Verified Documents: Surgical Consent and History and Physical NPO Status Verified Time NPO: 00:00 Additional verifications Anesthesia Reactions: No Airway Assessment Mallampati Score:: Class II C-Spine Mobility Assessed: Yes TMJ Mobility Assessed: Yes Dentition: Good Dentition Neurological Assessment Level of Consciousness: Awake, Alert and Appropriate Anesthesia Plan Anesthesia Risk discussed: Yes Anesthesia Plan: Verified ASA Class: III Anesthesia Type: MAC
--- NOTE | 2025-02-10 07:51 | P.PCN_ITS ---
Procedure: Date: 02/10/25 Patient Date of :: 1955 Procedure Performed:: Colonoscopy with polypectomy Indications:: History of colon polyps Note: Colonoscopy in July 2022 complicated by moderate bowel preparation and fairly profound lack of relaxation. Sigmoid diverticulosis and multiple hyperplastic-appearing polyps noted. Adenomatous polyps were removed (transverse colon and at 60 cm). Follow-up barium enema revealed poor distention, moderate diverticulosis, and no mass/constricting lesions. Performing Provider:: Eliazar Dowling MD Referring Provider:: . Sedation:: Monitored anesthesia care Procedure:: After informed consent was obtained the patient was taken to the endoscopy suite. Sedation ensued after the patient was transferred to the left lateral decubitus position. Pulse, blood pressure, and oxygen saturation were monitored throughout the procedure. Digital rectal exam revealed no significant abnormality. The colonoscope was placed in position. The entire colon was evaluated. The colonoscope was carefully removed and the patient was transferred to recovery in stable condition. Please see findings and specimens below for detail. Findings:: Bowel preparation moderate for Significant lack of relaxation Sigmoid diverticulosis (unchanged) Hemorrhoidal cushions Multiple hyperplastic-appearing polyps Transverse colon polyp Specimens:: Transverse colon polyp (cold snare) Note: Polyp not retrieved Recommendations:: Repeat colonoscopy in 2-3 years secondary to limited bowel preparation, lack of relaxation, history of multiple polyps, and non-retrievable polyp. Consider gastroenterology consultation secondary to limited bowel preparation on multiple occasions. If gastroenterology consultation is completed, his follow- up colonoscopy will be deferred to their service. Complications:: No immediate with the exception of limited bowel preparation Estimated blood obtained (mL): 1 Colonoscopy Component Colonoscopy Component Was a colonoscopy performed during today's procedure?: Yes Recommended follow up colonoscopy of at least 10 years?: No If no, follow up colonoscopy recommended in ___ years?: (See above) Reason for not recommending >/= 10 yr follow-up interval?: (See above)
[2025-02-10 07:53] VITALS: O2SAT 94
[2025-02-10 08:23] VITALS: BP 125/88; PULSE 93; RESP 16; TEMP 36.2; O2SAT 96
[2025-02-10 08:28] VITALS: BP 147/92; PULSE 91; RESP 17; O2SAT 90
[2025-02-10 08:33] VITALS: BP 146/84; PULSE 90; RESP 18; O2SAT 90
[2025-02-10 08:38] VITALS: BP 150/79; PULSE 82; RESP 16; O2SAT 94
== END 2025-02-10 08:54 | disposition home or self-care (01) ==
PROVIDERS: PCP Nurse Practitioner Family; Visit Provider Surgery
PROC: 0DJD8ZZ Inspection of Lower Intestinal Tract, Via Natural or Artificial Opening Endoscopic (ICD-10-PCS; CPT 45385; principal; 2025-02-10 08:15)
DX: Z12.11 Encounter for screening for malignant neoplasm of colon (principal); Z86.0100 Personal history of colon polyps, unspecified; K57.30 Diverticulosis of large intestine without perforation or abscess without bleeding; K64.9 Unspecified hemorrhoids; K63.5 Polyp of colon
CPT/HCPCS: 45385; J7120

== ENCOUNTER 2025-08-25 12:50 | Outpatient (CLI) | payer MEDICARE, SELFPAY ==
--- OUTSIDE RECORDS SUMMARY | 2025-07-06 12:50 | XMS_ITS | Encounter Summary ---
[facility] Address [address] [id number] Care Team Providers Care Therapy Technician Name Role Phone Ermelinda Tapia RIN Primary Care Provid er Reason for Referral * MRI/CAT/PET Scan (Routine) - Closed Specialty Diagnoses / Procedures Referred By Contac t Referred To Contact Radiology Diagnoses Acute pain of right knee Procedures MRI Knee Right Without Contrast Valentin Acosta MD [address] [place] [address] Phone: tel: fax: [address] [address] Phone: tel: Referral ID Status Reason Start Date Expiration Date Visits Re quested Visits Authorized [id number] Closed 07/06/2025 10/05/2026 1 1 Reason for Visit * Reason Comments Pain Encounter Details Date Type Department Care Team (Late st Contact Info) Description 07/06/2025 1:50 PM EDT Office Visit [facility] [address] [place] [address] Valentin Acosta MD [address] [place] [address] Acute pain of right knee (Primary Dx); Status post total replacement of right hip Social History Tobacco Use Types Packs/Day Years Used Date Smoking Tobacco: Former Cigarettes 1.5 46 0 10/23/1972 - 10/15/2018 Smokeless Tobacco: Never Tobacco Cessation:Counseling Given: Not Answered Alcohol Use Standard Drinks/Week Comments Not Currently 0 (1 standard drink = 0.6 oz pur e alcohol) OASIS D0700: Social Isolation Answer Da te Recorded Frequency of experiencing loneliness or isolatio n Never 06/11/2023 OASIS A1250: Transportation Answer Date Recorded Lack of Transportation (Medical) No 06/11/2023 Lack of Transportation (Non-Medical) No 06/11/2023 Patient Unable or Declines to Respond No 06/11/2023 OASIS B1300: Health Literacy Answer Bin e Recorded Frequency of needing help to read materials from doctor or pharmacy Never 06/11/2023 AUDIT-C Answer Date Recorded Q1: How often do you have a drink containing alc ohol? Patient declined 06/04/2023 Q2: How many drinks containi ng alcohol do you have on a typical day when you are drinking? Patient declined 06/04/2023 Q3: How often do you have si x or more drinks on one occasion? Patient declined 06/04/2023 Exercise Vital Sign Answer Date Recorde d On average, how many days pe r week do you engage in moderate to strenuous exercise (like a brisk walk)? 0 days 06/05/2023 On average, how many minutes do you engage in exercise at this level? 0 min 06/05/2023 Hunger Vital Sign Answer Date Recorded Within the past 12 months, y ou worried that your food would run out before you got the money to buy more. Never true 06/05/20 23 Within the past 12 months, t he food you bought just didn't last and you didn't have money to get more. Never true 06/05/2023 Abuse Screen Answer Date Recorded Feels Unsafe at Home or Work/School no 10/25/2023 Feels Threatened by Someone no 10/15 Does Anyone Try to Keep You From Having Contact with Others or Doing Things Outside Your Home? no 10/25/2023 Physical Signs of Abuse Present no 10/25/2023 Housing Stability Answer Date Recorded Current Living Arrangements home 10/15 Potentially Unsafe Housing Conditions Not on hari e 10/25/2023 Disabilities Answer Date Recorded Difficulty Concentrating, Remembering or Making Decisions no 10/25/2023 Difficulty Managing Errands Independently no 10/25/2023 Education Answer Date Recorded Help with school or training? Not on file Preferred Language Palauan 10/24/2023 Sex and Gender Information Value Date Recorded Sex Assigned at Male 08/19/2025 8:31 AM EST Legal Sex Male 11:25 AM EDT Gender Identity Not on file Sexual Orientation Straight 08/19/2025 8: 31 AM EST documented as of this encounter Last Filed Vital Signs Vital Sign Reading Time Taken Comments Blood Pressure 152/76 07/06/2025 1:43 PM EDT Pulse - - Temperature - - Respiratory Rate - - Oxygen Saturation - - Inhaled Oxygen Concentration - - Weight 122 kg (270 lb) 07/06/2025 1:43 PM EDT pt reported Height 172.7 cm (5' 8 ) 07/06/2025 1:43 PM EDT Body Mass Index 41.05 07/06/2025 1:43 PM EDT documented in this encounter Progress Notes * Valentin Acosta MD - 07/06/2025 1:50 PM EDT Images from the original note were not included. [facility] Orthopa[facility] Surgery Clinic Note Subjective Chief Complaint Patient presents with Right Knee - Pain HPI Angelo Machado is a 70 y.o. male who presents with new problem of: right knee pain. Onset: atraumatic and gradual in nature. The issue has been ongoing for 1 month(s). Pain is a 10/10 on the pain scale. Pain is described as stabbing and shooting. Associated symptoms include pain and stiffness. Thepain is worse with walking, standing, sitting, climbing stairs, rising from seated position, and any movement of the joint; resting and sitting improve the pain. Previous treatments have included: cane/walker. Pain is located diffusely in the knee. No numbness or tingling. No groin pain. History oftotal hip arthroplasty on the right hip, which has been functioning well. Also previous history of back surgery, but he is not having any back pain currently. No history of trauma. He has resorted towalking with a walker for the past 4 to 5 days, secondary to the pain. He presents today in a wheelchair. 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 CTS (carpal tunnel syndrome) 2017 GERD (gastroesophageal reflux disease) Hearing aid worn BILATERAL Hip arthrosis 01/2023 Hyperlipidemia Hypertension Lumbosacral disc disease 04/2023 Rotator cuff syndrome 2001 Skin cancer basal cell (nose, forehead, ears) Sleep apnea CPAP nightly Thoracic disc disorder 04/2023 Past Surgical History: Procedure Laterality Date APPENDECTOMY 2015 BACK SURGERY 05/2023 BICEPS TENDON REPAIR Left 2014 CARDIAC CATHETERIZATION 2008 no interventions CARPAL TUNNEL RELEASE Right 2018 CATARACT EXTRACTION Right COLONOSCOPY HAND SURGERY 2018 INGUINAL HERNIA REPAIR Right 1998 LUMBAR DISCECTOMY FUSION INSTRUMENTATION N/A 06/04/2023 Procedure: LUMBAR DECOMPRESSION AND FUSION WITH PEDICLE SCREWS, CAGE AND ALLOGRAFT L4-L5, L5-S1; Surgeon: Sukhwinder Patel MD; Location: [facility]; Service: Orthopedic Spine; Laterality: N/A; ROTATOR CUFF REPAIR Bilateral 2001 SHOULDER SURGERY 2002 SKIN BIOPSY 2017 TONSILLECTOMY TOTAL HIP ARTHROPLASTY Right 10/25/2023 Procedure: TOTAL HIP ARTHROPLASTY ANTERIOR MODIFIED RIGHT; Surgeon: Valentin Acosta MD; Location: [facility]; Service: Orthopedics; Laterality: Right; UMBILICAL HERNIA REPAIR 1994 Family History Problem Relation Age of Onset Broken bones Mother Fracture lumbar vertebra Osteoporosis Mother Rheumatologic disease Sister Social History Socioeconomic History Marital status: Tobacco Use Smoking status: Former Current packs/day: 0.00 Average packs/day: 1.5 packs/day for 46.0 years (69.0 ttl pk-yrs) Types: Cigarettes Start date: 10/23/1972 Quit date: 10/15/2018 Years since quittin.7 Smokeless tobacco: Never Vaping Use Vaping status: Never Used Substance and Sexual Activity Alcohol use: Not Currently Drug use: Never Sexual activity: Not Currently Partners: Female control/protection: Vasectomy Current Outpatient Medications on File Prior to Visit Medication Sig Dispense Refill aspirin (ASPIR) 81 MG EC tablet Take 1 tablet by mouth 2 (Two) Times a Day. 60 tablet 0 atorvastatin (LIPITOR) 20 MG tablet Take 1 tablet by mouth Daily. gabapentin (NEURONTIN) 300 MG capsule TAKE 1 CAPSULE BY MOUTH THREE TIMES DAILY NEEDED FOR PAIN lisinopril-hydrochlorothiazide (PRINZIDE,ZESTORETIC) 20-25 MG per tablet Take 1 tablet by mouth Daily. metoprolol succinate XL (TOPROL-XL) 50 MG 24 hr tablet Take 1 tablet by mouth Daily. multivitamin with minerals tablet tablet Take 1 tablet by mouth Daily. pantoprazole (PROTONIX) 40 MG EC tablet Take 1 tablet by mouth Daily. potassium chloride 10 MEQ CR tablet Take 1 tablet by mouth Every 12 (Twelve) Hours. No current facility-administered medications on file prior to visit. No Known Allergies Review of Systems Constitutional: Negative for activity change, appetite change, chills, diaphoresis, fatigue, fever and unexpected weight change. HENT: Negative for congestion, dental problem, drooling, ear discharge, ear pain, facial swelling, hearing loss, mouth sores, nosebleeds, postnasal drip, rhinorrhea, sinus pressure, sneezing, sore throat, tinnitus, trouble swallowing and voice change. Eyes: Negative for photophobia, pain, discharge, redness, itching and visual disturbance. Respiratory: Negative for apnea, cough, choking, chest tightness, shortness of breath, wheezing andstridor. Cardiovascular: Negative for chest pain, palpitations and leg swelling. Gastrointestinal: Negative for abdominal distention, abdominal pain, anal bleeding, blood in stool,constipation, diarrhea, nausea, rectal pain and vomiting. Endocrine: Negative for cold intolerance, heat intolerance, polydipsia, polyphagia and polyuria. Genitourinary: Negative for decreased urine volume, difficulty urinating, dysuria, enuresis, flank pain, frequency, genital sores, hematuria and urgency. Musculoskeletal: Positive for arthralgias. Negative for back pain, gait problem, joint swelling, myalgias, neck pain and neck stiffness. Skin: Negative for color change, pallor, rash and wound. Allergic/Immunologic: Negative for environmental allergies, food allergies and immunocompromised state. Neurological: Negative for dizziness, tremors, seizures, syncope, facial asymmetry, speech difficulty, weakness, light-headedness, numbness and headaches. Hematological: Negative for adenopathy. Does not bruise/bleed easily. Psychiatric/Behavioral: Negative for agitation, behavioral problems, confusion, decreased concentration, dysphoric mood, hallucinations, self-injury, sleep disturbance and suicidal ideas. The patientis not nervous/anxious and is not hyperactive. Objective Physical Exam BP 152/76 Ht 172.7 cm (68 ) Wt 122 kg (270 lb) Comment: pt reported BMI 41.05 kg/m?? Body mass index is 41.05 kg/m??. General: Mental Status: Alert Appearance: Cooperative, in no acute distress Build and Nutrition: Obese by BMI male Orientation: Alert and oriented to person, place and time Posture: Normal Gait: Sitting in a wheelchair Integument: Right knee: No skin lesions, no rash, no ecchymosis Neurologic: Motor: Right lower extremity: Intact quadriceps, hamstrings, ankle dorsiflexors, and ankle plantar flexors Lower Extremities: Right Knee: Tenderness: None Effusion: 1+ Swelling: None Crepitus: None Atrophy: None Range of motion: Extension: 0?? Flexion: 120?? Instability: No varus laxity, no valgus laxity, negative anterior drawer Deformities: None Negative Stinchfield right hip, and no pain with internal/external rotation right hip Imaging/Studies Imaging Results (Last 24 Hours) Procedure Component Value Units Date/Time XR Knee 4+ View Right [[id number]] Resulted: 07/06/251415 Updated: 07/06/251415 Narrative: Right Knee Radiographs Indication: right knee pain Views: Standing AP's and skiers of both knees, with lateral and sunrise views of the right knee Comparison: no prior studies available Findings: No acute bony abnormalities. Good alignment. No unusual bony features. XR Hip With or Without Pelvis 2 - 3 View Right [[id number]] Resulted: 07/06/251414 Updated: 07/06/251414 Narrative: Right Hip Radiographs Indication: status-post right total hip arthroplasty Views: low AP pelvis and lateral of the right hip Comparison: no change compared to prior study, 11/10/2024 Findings: The components are well aligned, with no signs of loosening or failure. Assessment and Plan Diagnoses and all orders for this visit: 1. Acute pain of right knee (Primary) - XR Knee 4+ View Right - MRI Knee Right Without Contrast; Future 2. Status post total replacement of right hip - XR Hip With or Without Pelvis 2 - 3 View Right 1. Acute pain of right knee 2. Status post total replacement of right hip I reviewed my findings with patient. No clear etiology for his right knee pain, but it is not appear to be coming from his hip nor his back. At this point, recommended further imaging with MRI, and Iwill see him back after the MRIs been completed for review. I will see him back sooner for any problems. No improvement with anti-inflammatories, ice, and he has resorted to ambulating with a walker and is in a wheelchair today. Return for after imaging study. Valentin Acosta MD 07/06/25 14:25 EDT Dictated Utilizing [employer] Dictation documented in this encounter Plan of Treatment Upcoming Encounters Date Type Department Care Team (Late st Contact Info) Description 08/26/2025 10:40 AM EST Office Visit [facility] [address] [place] [address] Valentin Acosta MD [address] [place] [address] documented as of this encounter Procedures Procedure Name Priority Date/Time Associated Diagnosis Comments XR HIP W OR WO PELVIS 2-3 VIEW RIGHT Routine 07/06/2025 2:12 PM EDT Status post total replacement of right hip XR KNEE 4+ VW RIGHT Routine 07/06/2025 2 :12 PM EDT Acute pain of right knee documented in this encounter Results * MRI Knee Right Without Contrast (07/12/2025 10:44 AM EDT) Anatomical Region Laterality Modality Lower Extremities, Knee Magnetic Resonance 07/14/2025 11:2 6 AM EDT Impressions 07/14/2025 11:33 AM EDT Impression: 1.There is mild medial and patellofemoral compartment arthritis of the knee with moderate size joint effusion. 2.There is a longitudinal radial tear posterior root medial meniscus with extrusion of the body and posterior horn into the medial gutter. 3.There is evidence of remote injury medial collateral ligament. 4.There is mild tendinopathy of the distal semimembranosus tendon with small semimembranosus bursal fluid collection. 5.Tiny Rhoades cyst. Electronically Signed: Kenzie Vázquez MD 07/14/2025 11:33 AM EDT Workstation ID: [id number] Narrative 07/14/2025 11:33 AM EDT MRI KNEE RIGHT WO CONTRAST Date of Exam: 07/12/2025 10:15 AM EDT Indication: Worsening right knee pain, no trauma. Comparison: Knee radiograph 07/06/2025 Technique: Routine multiplanar/multisequence images of the right knee were obtained without contrast administration. Findings: Osseous Structures and Intra-Articular Bone marrow signal intensity is normal. No osseous contusions or fractures. There is mild medial compartment and patellofemoral compartment joint space narrowing. Moderate size joint effusion.. No intra-articular loose bodies. Ligaments The anterior cruciate ligament and posterior cruciate ligaments are intact. Medial collateral ligament and lateral collateral ligament complex are intact. Thickening medial collateral ligament consistent with remote injury. Small cysts associate with the medial Kligman proximally measuring up to 1.1 cm. Menisci There is a longitudinal radial tear of the posterior root medial meniscus. There is extrusion of the posterior horn and body meniscal tissue into the medial gutter by 2 mm. There are no lateral meniscal tears. Extensor compartment Patella has anatomic position. Extensor mechanism is intact. Cartilage There is full-thickness cartilage loss at the superior patellar apex and superior central portions of the medial facet. This involves the superior two thirds. Cartilage signal alteration of the patellar cartilage. There is full-thickness cartilage loss at the femoral trochlea laterally measuring about 4 mm craniocaudal. Cartilage signal alteration elsewhere at the femoral trochlea. There is diffuse thinning of cartilage throughout the medial compartment. Soft tissues No soft tissue masses. There is a small fluid collection in the semimembranosus insertion site consistent with semimembranosus bursal fluid and mild tendinopathy of the distal tendon. A small bursal fluid measures up to 1.7 cm. Tiny Rhoades cyst without evidence of recent Rhoades cyst rupture. Miscellaneous Iliotibial band is normal. Popliteus muscle and tendon are normal in appearance. Procedure Note Kenzie Vázquez MD - 07/14/2025 MRI KNEE RIGHT WO CONTRAST Date of Exam: 07/12/2025 10:15 AM EDT Indication: Worsening right knee pain, no trauma. Comparison: Knee radiograph 07/06/2025 Technique: Routine multiplanar/multisequence images of the right kneewere obtained without contrast administration. Findings: Osseous Structures and Intra-Articular Bone marrow signal intensity is normal. No osseous contusions orfractures. There is mild medial compartment and patellofemoral compartmentjoint space narrowing. Moderate size joint effusion.. No intra-articularloose bodies. Ligaments The anterior cruciate ligament and posterior cruciate ligaments areintact. Medial collateral ligament and lateral collateral ligament complexare intact. Thickening medial collateral ligament consistent with remoteinjury. Small cysts associate with the medial Kligman proximally measuring up to 1.1 cm. Menisci There is a longitudinal radial tear of the posterior root medial meniscus.There is extrusion of the posterior horn and body meniscal tissue into themedial gutter by 2 mm. There are no lateral meniscal tears. Extensor compartment Patella has anatomic position. Extensor mechanism is intact. Cartilage There is full-thickness cartilage loss at the superior patellar apex andsuperior central portions of the medial facet. This involves the superiortwo thirds. Cartilage signal alteration of the patellar cartilage. Thereis full-thickness cartilage loss at the femoral trochlea laterally measuring about 4 mm craniocaudal.Cartilage signal alteration elsewhere at the femoral trochlea. There isdiffuse thinning of cartilage throughout the medial compartment. Soft tissues No soft tissue masses. There is a small fluid collection in thesemimembranosus insertion site consistent with semimembranosus bursalfluid and mild tendinopathy of the distal tendon. A small bursal fluidmeasures up to 1.7 cm. Tiny Rhoades cyst without evidence of recent Rhoades cyst rupture. Miscellaneous Iliotibial band is normal. Popliteus muscle and tendon are normal inappearance. IMPRESSION: Impression: 1.There is mild medial and patellofemoral compartment arthritis of theknee with moderate size joint effusion. 2.There is a longitudinal radial tear posterior root medial meniscus withextrusion of the body and posterior horn into the medial gutter. 3.There is evidence of remote injury medial collateral ligament. 4.There is mild tendinopathy of the distal semimembranosus tendon withsmall semimembranosus bursal fluid collection. 5.Tiny Rhoades cyst. Electronically Signed: Kenzie Vázquez MD 07/14/2025 11:33 AM EDT Workstation ID: [id number] Valentin Acosta MD [facility] MRI ORDERABLES Final Resul t * XR Hip With or Without Pelvis 2 - 3 View Right (07/06/2025 2:12 PM EDT) Anatomical Region Laterality Modality Lower Extremities, Hip Right Xray Narrative 07/06/2025 2:15 PM EDT Right Hip Radiographs Indication: status-post right total hip arthroplasty Views: low AP pelvis and lateral of the right hip Comparison: no change compared to prior study, 11/10/2024 Findings: The components are well aligned, with no signs of loosening or failure. Valentin Acosta MD [facility]ST[facility] ORDERAB LES Final Result * XR Knee 4+ View Right (07/06/2025 2:12 PM EDT) Anatomical Region Laterality Modality Lower Extremities, Knee Right Xray Narrative 07/06/2025 2:16 PM EDT Right Knee Radiographs Indication: right knee pain Views: Standing AP's and skiers of both knees, with lateral and sunrise views of the right knee Comparison: no prior studies available Findings: No acute bony abnormalities. Good alignment. No unusual bony features. Valentin Acosta MD [facility] ORDERAB LES Final Result documented in this encounter Visit Diagnoses Diagnosis Acute pain of right knee- Primary Status post total replacement of right hip Acute pain of right knee documented in this encounter Care Teams Therapy Technician Relationship Specialty Start Date End Date Ermelinda Tapia APRN [address] [place] [address] PCP - General Family Medicine 05/29/23 documented as of this encounter
--- OUTSIDE RECORDS SUMMARY | 2025-07-12 09:03 | XMS_ITS | Encounter Summary ---
[facility] Address [address] [place] [address] Care Team Providers Care Braille Translator Name Role Phone Regina Ermelinda Katarina GAR Primary Care Provid er Reason for Referral * MRI/CAT/PET Scan (Routine) - Closed Specialty Diagnoses / Procedures Referred By Contac t Referred To Contact Radiology Diagnoses Acute pain of right knee Procedures MRI Knee Right Without Contrast Valentin Acosta MD [address] [place] [address] Phone: tel: fax: [address] [phone] Phone: tel: Referral ID Status Reason Start Date Expiration Date Visits Re quested Visits Authorized [id number] Closed 07/06/2025 10/05/2026 1 1 Reason for Visit * MRI/CAT/PET Scan (Routine) - Closed Specialty Diagnoses / Procedures Referred By Contac t Referred To Contact Radiology Diagnoses Acute pain of right knee Procedures MRI Knee Right Without Contrast Valentin Acosta MD [address] [place] [address] Phone: tel: fax: [address] [phone] Phone: tel: Referral ID Status Reason Start Date Expiration Date Visits Re quested Visits Authorized [id number] Closed 07/06/2025 10/05/2026 1 1 Encounter Details Date Type Department Care Team (Late st Contact Info) Description 07/12/2025 10:03 AM EDT - 07/12/2025 11:59 PM EDT Hospital Encounter [facility] MRI [place] [address] [place] [address] Valentin Acosta MD [facility] [address] [place] [id number] Acute pain of right knee Discharge Disposition: Home or Self Care Social History Tobacco Use Types Packs/Day Years Used Date Smoking Tobacco: Former Cigarettes 1.5 46 0 10/23/1972 - 10/15/2018 Smokeless Tobacco: Never Alcohol Use Standard Drinks/Week Comments Not Currently [...] or training? Not on file Preferred Language Qatari 10/24/2023 Sex and Gender Information Value Date Recorded Sex Assigned at Male 08/19/2025 8:31 AM EST Legal Sex Male 11:25 AM EDT Gender Identity Not on file Sexual Orientation Straight 08/19/2025 8: 31 AM EST documented as of this encounter Medications at Time of Discharge aspirin (ASPIR) 81 MG EC tablet Take 1 tablet by mouth 2 (Two) Times a Day. 60 tablet 10/25/2023 4:48 PM EST 10/26/2023 atorvastatin (LIPITOR) 20 MG tablet Take 1 tablet by mouth Daily. 04/20/2023 gabapentin (NEURONTIN) 300 MG capsule TAKE 1 CAPSULE BY MOUTH THREE TIMES DAILY NEEDED FOR PAIN 11/20/2023 lisinopril-hydroc hlorothiazide (PRINZIDE,ZESTORE TIC) 20-25 MG per tablet Take 1 tablet by mouth Daily. 04/20/2023 metoprolol succinate XL (TOPROL-XL) 50 MG 24 hr tablet Take 1 tablet by mouth Daily. 03/05/2023 multivitamin with minerals tablet tablet Take 1 tablet by mouth Daily. pantoprazole (PROTONIX) 40 MG EC tablet Take 1 tablet by mouth Daily. 04/20/2023 potassium chloride 10 MEQ CR tablet Take 1 tablet by mouth Every 12 (Twelve) Hours. 04/20/2023 documented as of this encounter Plan of Treatment Upcoming Encounters Date Type Department Care Team (Late st Contact Info) Description 08/26/2025 10:40 AM EST Office Visit [facility] [address] [place], [place] [phone] Valentin Acosta MD [address] [address] documented as of this encounter Procedures Procedure Name Priority Date/Time Associated Diagnosis Comments MRI KNEE RIGHT WO CONTRAST STAT 07/12/2025 10:44 AM EDT Acute pain of right knee documented [...] MD 07/14/2025 11:33 AM EDT Workstation ID: [id number] Narrative 07/14/2025 11:33 AM EDT MRI KNEE [...] MD 07/14/2025 11:33 AM EDT Workstation ID: [id number] Valentin Acosta MD IMG MRI ORDERABLES Final Resul t documented in this encounter Visit Diagnoses Diagnosis Acute pain of right knee documented in this encounter Care Teams Braille Translator Relationship Specialty Start Date End Date Ermelinda Tapia KatarinaRIN [address] [place] [address] [place], [place] [address] PCP - General Family Medicine 05/29/23 documented as of this encounter
--- OUTSIDE RECORDS SUMMARY | 2025-07-15 08:40 | XMS_ITS | Encounter Summary ---
Author Organization [facility] Address [address] [place] [address] Care Team Providers Care Business Development Assistant Name Role Phone Ermelinda Tapia APRN Primary Care Provid er Reason for Visit * Reason Comments Follow-up 9 day follow up -. A cute pain of right knee Encounter Details Date Type Department Care Team (Late st Contact Info) Description 07/15/2025 9:40 AM EDT Office Visit [facility] [address] [place] [address] Valentin Acosta MD [address] [facility] [address] [place] [address] Acute pain of right knee (Primary Dx); Tear of medial meniscus of right knee, unspecified tear type, unspecified whether old or current tear, initial encounter Social History Tobacco Use Types Packs/Day Years [...] or training? Not on file Preferred Language Romansh 10/24/2023 Sex and Gender Information Value Date Recorded Sex Assigned at Male 08/19/2025 8:31 AM EST Legal Sex Male 11:25 AM EDT Gender Identity Not on file Sexual Orientation Straight 08/19/2025 8: 31 AM EST documented as of this encounter Last Filed Vital Signs Vital Sign Reading Time Taken Comments Blood Pressure 144/80 07/15/2025 9:44 AM EDT Pulse - - Temperature - - Respiratory Rate - - Oxygen Saturation - - Inhaled Oxygen Concentration - - Weight 122 kg (270 lb) 07/15/2025 9:44 AM EDT Height 172.7 cm (5' 8 ) 07/15/2025 9:44 AM EDT Body Mass Index 41.05 07/15/2025 9:44 AM EDT documented in this encounter Progress Notes * Valentin Acosta MD - 07/15/2025 9:40 AM EDT Images from the original note were not included. [facility] [place] Subjective Chief Complaint Patient presents with Follow-up 9 day follow up -. Acute pain of right knee HPI It has been 9 day(s) since Mr. Machado's last visit. He returns to clinic today for follow-up of right knee pain. The issue has been ongoing for 1.5 month(s). He rates his pain a 7/10 on the pain scale. Previous/current treatments: cane/walker and NSAIDS. Current symptoms: pain. The pain is worse with walking and standing; resting and pain medication and/or NSAID improve the pain. Overall, he isdoing better. Here today to review the MRI results. He is ambulatory with the aid of a walker today. Some improvement since his last visit. Minimal improvement with ibuprofen. Pain diffuse in the knee. No groin pain. No history of trauma. He does have some back issues with previous back surgery. I have reviewed the following portions of [...] of back 01/2023 CTS (carpal tunnel syndrome) 2018 GERD (gastroesophageal reflux disease) Hearing aid worn BILATERAL Hip arthrosis 01/2023 Hyperlipidemia Hypertension Lumbosacral disc disease 04/2023 Rotator cuff syndrome 2002 Skin cancer basal cell (nose, forehead, ears) Sleep apnea CPAP nightly Thoracic disc disorder 04/2023 Past Surgical History: Procedure Laterality Date APPENDECTOMY 2015 BACK SURGERY 05/2023 BICEPS TENDON REPAIR Left 2014 CARDIAC CATHETERIZATION 2007 no interventions CARPAL TUNNEL RELEASE Right 2018 CATARACT EXTRACTION Right COLONOSCOPY HAND SURGERY 2018 INGUINAL HERNIA REPAIR Right 1998 LUMBAR DISCECTOMY FUSION INSTRUMENTATION N/A 06/04/2023 Procedure: LUMBAR DECOMPRESSION AND FUSION WITH PEDICLE SCREWS, CAGE AND ALLOGRAFT L4-L5, L5-S1; Surgeon: Sukhwinder Patel MD; Location: [facility]; Service: Orthopedic Spine; Laterality: N/A; ROTATOR CUFF REPAIR Bilateral 2001 SHOULDER SURGERY 2001 SKIN BIOPSY 2017 TONSILLECTOMY TOTAL HIP ARTHROPLASTY Right 10/25/2023 Procedure: TOTAL HIP ARTHROPLASTY ANTERIOR MODIFIED RIGHT; Surgeon: Valentin Acosta MD; Location: [facility]; Service: Orthopedics; Laterality: Right; UMBILICAL HERNIA [...] is not hyperactive. Objective Physical Exam BP 144/80 Ht 172.7 cm (68 ) Wt 122 kg (270 lb) BMI 41.05 kg/m?? Body mass index is 41.05 kg/m??. General: Mental Status: Alert Appearance: Cooperative, in no acute distress Build and Nutrition: Obese by BMI male Orientation: Alert and oriented to person, place and time Posture: Normal Gait: Limp on the right Integument: Right knee: No skin lesions, no rash, no ecchymosis Lower Extremities: Right Knee: Tenderness: Mild medial joint line tenderness Effusion: 1+ Swelling: None Crepitus: None Range of motion: Extension: 0?? Flexion: 120?? Instability: No varus laxity, no valgus laxity, negative anterior drawer Deformities: None Negative Stinchfield right hip, no pain with internal/external rotation right hip Imaging/Studies Imaging Results (Last 24 Hours) No results found for the last 24 hours. MRI Knee Right Without Contrast Order date: 07/12/2025 Authorizing: Valentin Acosta MD Ordered by Valentin Acosta MD on 07/12/2025. Narrative & Impression MRI KNEE RIGHT WO CONTRAST Date of [...] alteration of the patellar cartilage. There is full- thickness cartilage loss at the femoral trochlea laterally [...] muscle and tendon are normal in appearance. IMPRESSION: Impression: 1.There is mild medial and patellofemoral compartment arthritis of the knee with moderate size joint effusion. 2.There is a longitudinal radial tear posterior root medial meniscus with extrusion of the body andposterior horn into the medial gutter. 3.There is evidence of remote injury medial collateral ligament. 4.There is mild tendinopathy of the distal semimembranosus tendon with small semimembranosus bursalfluid collection. 5.Tiny Rhoades cyst. Electronically Signed: Kenzie Vázquez MD 07/14/2025 11:33 AM EDT Workstation ID: [id number] I reviewed the above images, and my interpretation is degenerative tear posterior horn medial meniscus, with no acute abnormalities. Joint effusion also seen. Assessment and Plan Diagnoses and all orders for this visit: 1. Acute pain of right knee (Primary) 2. Tear of medial meniscus of right knee, unspecified tear type, unspecified whether old or currenttear, initial encounter - - Large Joint Arthrocentesis: R knee 1. Acute pain of right knee 2. Tear of medial meniscus of right knee, unspecified tear type, unspecified whether old or currenttear, initial encounter I reviewed my findings with the patient. He does have a small posterior horn medial meniscus tear and a joint effusion. Point, we discussed options and he would like to proceed with an intra-articular knee injection which was provided today. I will see him back in 6 weeks to improve sure improvement. I will see him back sooner for any problems. Procedure Note: The potential benefits of performing a therapeutic right knee joint injection, as well as potentialrisks (including, but not limited to infection, swelling, pain, bleeding, bruising, nerve/blood vessel damage, skin color changes, transient elevation in blood glucose levels, and fat atrophy) were discussed with the patient. After informed consent, timeout procedure was performed, and the skin on the right knee was prepped with chlorhexidine soap and alcohol, after which ethyl chloride was applied to the skin at the injection site. Via the anterolateral approach, 1ml of Kenalog 40 mg/ml mixed with 4ml 0.5% ropivacaine plain was injected into the knee joint. The patient tolerated the procedure well, experiencing 85% improvement a few minutes following the injection, and was able to walk well. There were no complications. Band-Aid was applied to the injection site. Post-procedural instructions were given to the patient and/or their caregiver. Return in about 6 weeks (around 08/26/2025). Valentin Acosta MD 07/15/25 10:55 EDT Dictated Utilizing Dragon Dictation * Parul Beard MA - 07/15/2025 9:40 AM EDTAssociated Order(s): - Large Joint Arthrocentesis: R knee Procedure - Large Joint Arthrocentesis: R knee on 07/15/2025 10:42 AM Indications: pain Details: 21 G needle, anterolateral approach Medications: 4 mL ropivacaine 0.5 %; 40 mg triamcinolone acetonide 40 MG/ML Outcome: tolerated well, no immediate complications Procedure, treatment alternatives, risks and benefits explained, specific risks discussed. Consent was given by the patient. Immediately prior to procedure a time out was called to verify the correctpatient, procedure, equipment, postal support employee and site/side marked as required. Patient was prepped and draped in the usual sterile fashion. documented in this encounter Plan of Treatment Upcoming Encounters Date Type Department Care Team (Late st Contact Info) Description 08/26/2025 10:40 AM EST Office Visit [facility] [address] [place] [address] Valentin Acosta MD [facility] [place] [address] documented as of this encounter Procedures Procedure Name Priority Date/Time Associated Diagnosis Comments IA ARTHROCENTESIS ASPIR&/INJ MAJOR JT/BURSA W/O US Routine 07/15/2025 10:42 AM EDT Tear of medial meniscus of right knee, unspecified tear type, unspecified whether old or current tear, initial encounter documented in this encounter Results * IA ARTHROCENTESIS ASPIR&/INJ MAJOR JT/BURSA W/O US (07/15/2025 10:42 AM EDT) Narrative Parul Beard, MA - 07/15/2025 10:42 AM EDT Chirag Darragh, MA 07/15/2025 11:05 AM - Large Joint Arthrocentesis: R knee on 07/15/2025 10:42 AM Indications: pain Details: 21 G needle, anterolateral approach Medications: 4 mL ropivacaine 0.5 %; 40 mg triamcinolone acetonide 40 MG/ML Outcome: tolerated well, no immediate complications Procedure, treatment alternatives, risks and benefits explained, specific risks discussed. Consent was given by the patient. Immediately prior to procedure a time out was called to verify the correct patient, procedure, equipment, postal support employee and site/side marked as required. Patient was prepped and draped in the usual sterile fashion. us Valentin Acosta MD PROCEDURE/MINOR SURGICAL ORDER SVETA Final Result documented in this encounter Visit Diagnoses Diagnosis Acute pain of right knee- Primary Tear of medial meniscus of right knee, unspecified tear type, unspecified whether old or current tear, initial encounter documented in this encounter Administered Medications Inactive Administered Medications - up to 3 most recent administrations Medication Order MAR Action Action Date Dose Rate Site ropivacaine (NAROPIN) 0.5 % injection 4 mL 4 mL, One-Time Injection, Starting on Sun07/15/25 at 1042, For 1 doseIndications:Tear of medial meniscus of right knee, unspecified tear type, unspecified whether old or current tear, initial encounter Given 07/15/2025 10:42 AM EDT 4 mL Knee Right triamcinolone acetonide (KENALOG-40) injection 40 mg 40 mg, One-Time Injection, Starting on Sun07/15/25 at 1042, For 1 doseIndications:Tear of medial meniscus of right knee, unspecified tear type, unspecified whether old or current tear, initial encounter Given 07/15/2025 10:42 AM EDT 40 mg Knee Right documented in this encounter Care Teams Business Development Assistant Relationship Specialty Start Date End Date Ermelinda Tapia APRN [address] [facility] [address] [place] [address] PCP - General Family Medicine 05/29/23 documented as of this encounter
--- OUTSIDE RECORDS SUMMARY | 2025-08-25 12:56 | XMS_ITS | Encounter Summary ---
[facility] Address [address] [place] [id number] Care Team Providers Care Stonecutter Hand Name Role Phone Ermelinda Tapia APRN Primary Care Provid er Reason for Visit * Reason Onset Date Comments CLINICAL MESSAGE 08/07/2025 Encounter Details Date Type Department Care Team (Late st Contact Info) Description 08/07/2025 Telephone [facility] [address] [place] [address] Valentin Acosta MD [address] [place] [address] CLINICAL MESSAGE Social History Tobacco Use Types Packs/Day Years [...] or training? Not on file Preferred Language Kyrgyz 10/24/2023 Sex and Gender Information Value Date Recorded Sex Assigned at Male 08/19/2025 8:31 AM EST Legal Sex Male 11:25 AM EDT Gender Identity Not on file Sexual Orientation Straight 08/19/2025 8: 31 AM EST documented as of this encounter Miscellaneous Notes * Telephone Encounter - Zora Perealu Plascencia - 08/07/2025 4:05 PM EDT Called patient to let him know that Dr. Acosta does not have any availability until his appointment date. I did offer him an appointment next Sunday to see Debby, however, she would not be able to do much for him since he just had an injection. He declined the appointment with Debby and wanted to keep his appointment with Dr. Acosta on 08/26. * Telephone Encounter - Genevieve Luque - 08/07/2025 1:53 PM EDT Caller: ANGELO LOGAN Relationship to patient: SELF Best call back number: [phone] Chief complaint: PATIENT WAS SEEN ON 07/15/25 AND GOT RIGHT KNEE INJECTION AND IT ONLY HELPED X 4 DAYS AND PAIN I GETTING WORSE. PATIENT ASKING TO MOVE 08/[address] ACOSTA. HUB HAS NO AVAILABILITY. Type of visit: F/U documented in this encounter Plan of Treatment Upcoming Encounters Date Type Department Care Team (Late st Contact Info) Description 08/26/2025 10:40 AM EST Office Visit [facility] [address] [place] [address] Valentin Acosta MD [address] [facility] [address] [place] [address] documented as of this encounter Visit Diagnoses Not on filedocumented in this encounter Care Teams Stonecutter Hand Relationship Specialty Start Date End Date Ermelinda Tapia APRN [address] [facility] [address] [facility] [address] [place] [address] PCP - General Family Medicine 05/29/23 documented as of this encounter
--- OUTSIDE RECORDS SUMMARY | 2025-08-25 12:56 | XMS_ITS | Encounter Summary ---
Author Organization [facility] Address [address] [place] [address] Care Team Providers Care Manager Books Name Role Phone Ermelinda Tapia RIN Primary Care Provid er Encounter Details Date Type Department Care Team (Latest Contact Info) Description 07/06/2025 Travel Social History Tobacco Use Types Packs/Day Years [...] or training? Not on file Preferred Language Turkish 10/24/2023 Sex and Gender Information Value Date Recorded Sex Assigned at Male 08/19/2025 8:31 AM EST Legal Sex Male 11:25 AM EDT Gender Identity Not on file Sexual Orientation Straight 08/19/2025 8: 31 AM EST documented as of this encounter Plan of Treatment Upcoming Encounters Date Type Department Care Team (Late st Contact Info) Description 08/26/2025 10:40 AM EST Office Visit [facility] [address] [place] [address] Valentin Acosta MD [facility] [place] [address] documented as of this encounter Visit Diagnoses Not on filedocumented in this encounter Care Teams Manager Books Relationship Specialty Start Date End Date Ermelinda Tapia APRN [address] [facility] [address] [facility] [address] [place] [address] PCP - General Family Medicine 05/29/23 documented as of this encounter
--- OUTSIDE RECORDS SUMMARY | 2025-08-25 12:56 | XMS_ITS | Encounter Summary ---
Author Organization [facility] Address [address] [place] [address] Care Team Providers Care Advanced Solutions Architect Name Role Phone Ermelinda Tapia RIN Primary Care Provid er Encounter Details Date Type Department Care Team (Latest Contact Info) Description 07/15/2025 Travel Social History Tobacco Use Types Packs/Day [...] or training? Not on file Preferred Language Japanese 10/24/2023 Sex and Gender Information Value Date Recorded Sex Assigned at Male 08/19/2025 8:31 AM EST Legal Sex Male 11:25 AM EDT Gender Identity Not on file Sexual Orientation Straight 08/19/2025 8: 31 AM EST documented as of this encounter Plan of Treatment Upcoming Encounters Date Type Department Care Team (Late st Contact Info) Description 08/26/2025 10:40 AM EST Office Visit [facility] [address] [place] [address] Valentin Acosta MD [facility] [place] [address] documented as of this encounter Visit Diagnoses Not on filedocumented in this encounter Care Teams Advanced Solutions Architect Relationship Specialty Start Date End Date Ermelinda Tapia APRN [address] [facility] [address] [facility] [address] [place] [address] PCP - General Family Medicine 05/29/23 documented as of this encounter
--- OUTSIDE RECORDS SUMMARY | 2025-08-25 12:56 | XMS_ITS | Encounter Summary ---
Author Organization [facility] Address [address] [place] [address] Care Team Providers Care Residential Real Estate Sales Manager Name Role Phone Ermelinda Tapia RIN Primary Care Provid er Encounter Details Date Type Department Care Team (Latest Contact Info) Description 07/12/2025 Travel Social History Tobacco Use Types Packs/Day [...] or training? Not on file Preferred Language Icelandic 10/24/2023 Sex and Gender Information Value Date Recorded Sex Assigned at Male 08/19/2025 8:31 AM EST Legal Sex Male 11:25 AM EDT Gender Identity Not on file Sexual Orientation Straight 08/19/2025 8: 31 AM EST documented as of this encounter Plan of Treatment Upcoming Encounters Date Type Department Care Team (Late st Contact Info) Description 08/26/2025 10:40 AM EST Office Visit [facility] [address] [place] [address] Valentin Acosta MD [facility] [place] [address] documented as of this encounter Visit Diagnoses Not on filedocumented in this encounter Care Teams Residential Real Estate Sales Manager Relationship Specialty Start Date End Date Ermelinda Tapia APRN [address] [facility] [address] [facility] [address] [place] [address] PCP - General Family Medicine 05/29/23 documented as of this encounter
--- OUTSIDE RECORDS SUMMARY | 2025-08-25 12:56 | XMS_ITS | Clinical Summary ---
Author Organization [facility] Address [address] [place] [address] Care Team Providers Care Stroke Belt Sander Operator Name Role Phone ReginaErmelinda salazar Katarina RIN Primary Care Provid er Allergies No known active allergies Medications potassium chloride 10 MEQ CR tablet Take 1 tablet by mouth Every 12 (Twelve) Hours. 04/20/2023 Active atorvastatin (LIPITOR) 20 MG tablet Take 1 tablet by mouth Daily. 04/20/2023 Active lisinopril-hydr ochlorothiazide (PRINZIDE,ZESTO RETIC) 20-25 MG per tablet Take 1 tablet by mouth Daily. 04/20/2023 Active pantoprazole (PROTONIX) 40 MG EC tablet Take 1 tablet by mouth Daily. 04/20/2023 Active metoprolol succinate XL (TOPROL-XL) 50 MG 24 hr tablet Take 1 tablet by mouth Daily. 03/05/2023 Active multivitamin with minerals tablet tablet Take 1 tablet by mouth Daily. Active aspirin (ASPIR) 81 MG EC tablet Take 1 tablet by mouth 2 (Two) Times a Day. 60 tablet 10/25/2023 4:48 PM EST 10/26/2023 Active gabapentin (NEURONTIN) 300 MG capsule TAKE 1 CAPSULE BY MOUTH THREE TIMES DAILY NEEDED FOR PAIN 11/20/2023 Active Active Problems Problem Noted Date Diagnosed Date Status post total replacement of right hip 10/25 Elevated hemoglobin A1c 10/25/2023 Degenerative arthritis of hip 10/24/2023 Acute postoperative pain 06/06/2023 Spondylolisthesis, lumbar region 06/04/2023 Spondylolisthesis 06/04/2023 HTN (hypertension) 06/04/2023 GERD (gastroesophageal reflux disease) 3 Hyperlipidemia 06/04/2023 Lumbar stenosis, s/p decompr ession , fusion L4-5, and L 5 S1 06/04/2023 Overview (06/04/2023): Pre-Operative Diagnosis: Lumbar stenosis with spondylolisthesis and neurogenic leg pain Post Operative Diagnosis: Same Procedure: #1 Decompression of L4-5 and L5-S1 #2 Posterior Lateral Fusion of L4-5 and L5-S1 #3 Pedicle Screws Placed at L4, L5 and S1 #4 Local Bone mixed with Purified Allograft Placed posteriorly and in Lateral Gutters #5 Interbody Fusion of L4-5 #6 Interbody Cages Placed at L4-5 CARIDAD on CPAP 06/04/2023 Encounters Date Type Department Care Team Description 08/07/2025 Telephone [facility] [address] [facility] [address] [place] [id number] Valentin Acosta MD CLINICAL MESSAGE 07/15/2025 9:40 AM EDT Office Visit [facility] [address] [facility] [address] [place] [phone] Valentin Acosta MD Acute pain of right knee (Primary Dx); Tear of medial meniscus of right knee, unspecified tear type, unspecified whether old or current tear, initial encounter 07/15/2025 Travel 07/12/2025 10:03 AM EDT - 07/12/2025 11:59 PM EDT Hospital Encounter [facility] [address] [facility] [address] [place] [address] Valentin Acosta MD Acute pain of right knee Discharge Disposition: Home or Self Care 07/12/2025 Travel 07/06/2025 1:50 PM EDT Office Visit [facility] [address] [facility] [address] [place] [address] Valentin Acosta MD Acute pain of right knee (Primary Dx); Status post total replacement of right hip 07/06/2025 Travel from Last 3 Months Family History Medical History Relation Name Comments Broken bones Mother Juanis Machado Fracture lumb ar vertebra Osteoporosis Mother Juanis Machado Rheumatologic disease Sister Freda Machado Relation Name Status Comments Mother Juanis Machado Sister Freda Machado Social History Tobacco Use Types Packs/Day Years [...] or training? Not on file Preferred Language Algerian 10/24/2023 Sex and Gender Information Value Date Recorded Sex Assigned at Male 08/19/2025 8:31 AM EST Legal Sex Male 11:25 AM EDT Gender Identity Not on file Sexual Orientation Straight 08/19/2025 8: 31 AM EST Last Filed Vital Signs Vital Sign Reading Time Taken Comments Blood Pressure 144/80 07/15/2025 9:44 AM EDT Pulse 72 10/25/2023 5:00 PM EST Temperature 36.5 C (97.7 F) 11/19/2023 1:41 PM EST Respiratory Rate 16 10/25/2023 5:00 PM EST Oxygen Saturation 94% 10/25/2023 5:00 PM EST Inhaled Oxygen Concentration - - Weight 122 kg (270 lb) 07/15/2025 9:44 AM EDT Height 172.7 cm (5' 8 ) 07/15/2025 9:44 AM EDT Body Mass Index 41.05 07/15/2025 9:44 AM EDT Plan of Treatment Upcoming Encounters Date Type Department Care Team (Late st Contact Info) Description 08/26/2025 10:40 AM EST Office Visit [facility] [address] [place] [address] Valentin Acosta MD [address] [facility] [address] [place] [address] Health Maintenance Due Date Last Done Comments LIPID PANEL 1953 TDAP/TD VACCINES (1 - Tdap) 1972 COLOGUARD 1998 COLON CANCER SCREENING 5 YEA R SIGMOIDOSCOPY 1998 COLONOSCOPY 1998 COL[address]AL CANCER SCREENING 1998 CT COLONOGRAPHY 1998 FECAL OCCULT BLOOD TEST 1998 FIT Testing (1 year) 1998 LUNG CANCER SCREENING 2003 Pneumococcal Vaccine 50+ (1 of 1 - PCV) 2003 ZOSTER VACCINE (1 of 2) 2003 AAA SCREEN ONCE 2018 ANNUAL WELLNESS VISIT 05/29/2023 HEPATITIS C SCREENING 05/29/2023 INFLUENZA VACCINE 05/15/2025 07/22/2024 COVID-19 Vaccine (7 - Pfizer risk 2023- season) 2025 07/22/2024, 07/26/2023, 07/26/2022, Additional history exists Medical Devices Implanted Type Area Paving And Surfacing Labourer Device Identifier Shelf Expiration Date Model / Serial / Lot Hemost Abs Surgifoam Sz100 8x12 10mm - [id number] Implanted:Qty: 1 on 06/04/2023 by Sukhwinder Patel MD at [facility] Implant N/A: Spine Lumbar ETHICON DIV OF J AND J 1974 / / Spacr Tpal Peek [id number] - [id number] Implanted:Qty: 1 on 06/04/2023 by Sukhwinder Patel MD at [facility] Implant N/A: Spine Lumbar DEPUY SYNTHES [id number] / / Kt Seal Hemos Abs Floseal Matrx Fast/Prep 10ml - [id number] Implanted:Qty: 1 on 06/04/2023 by Sukhwinder Patel MD at [facility] Implant N/A: Spine Lumbar [employer] [id number] / / [id number] Allogr[employer]ox [place] Celluar Matrx Formable 5cc - [id number] - [id number] Implanted:Qty: 1 on 06/04/2023 by Sukhwinder Patel MD at [facility] Implant N/A: Spine Lumbar [facility] [id number] 12/29/2023 [id number] / [id number] / Scrw Expedium Pa Ti 7x40mm - [id number] Implanted:Qty: 2 on 06/04/2023 by Sukhwinder Patel MD at [facility] Implant N/A: Spine Lumbar DEPUY SPINE [id number] / / Scrw Expedium Pa Ti 6x45mm - [id number] Implanted:Qty: 2 on 06/04/2023 by Sukhwinder Patel MD at [facility] Implant N/A: Spine Lumbar DEPUY SPINE [id number] / / Scrw Expedium Pa Ti 6x50mm - [id number] Implanted:Qty: 2 on 06/04/2023 by Sukhwinder Patel MD at [facility] Implant N/A: Spine Lumbar DEPUY SPINE [id number] / / Amado Prelrd Spine Expedium W/Line 65mm - [id number] Implanted:Qty: 1 on 06/04/2023 by Sukhwinder Patel MD at [facility] Implant N/A: Spine Lumbar DEPUY SPINE [id number] / / Amado Prebnt Spine Expedium W/Line Ti 5.5x70mm - [id number] Implanted:Qty: 1 on 06/04/2023 by Sukhwinder Patel MD at [facility] Implant N/A: Spine Lumbar DEPUY SPINE [id number] / / Scrw Innr Expedium - [id number] Implanted:Qty: 6 on 06/04/2023 by Sukhwinder Patel MD at [facility] Implant N/A: Spine Lumbar DEPUY SPINE [id number] / / Dev Contrl Tiss Stratafix Spiral Mncryl Ud 3/0 Pls 60cm - [id number] Implanted:Qty: 1 on 10/25/2023 by Valentin Acosta MD at [facility] Implant Right: Hip ETHICON ENDO SURGERY DIV OF J AND J 07/14/2025 [id number] / / [id number] Dev Contrl Tiss Stratafix Symm Pds Plus Kesha Ct-1 45cm - [id number] Implanted:Qty: 1 on 10/25/2023 by Valentin Acosta MD at [facility] Implant Right: Hip ETHICON DIV OF J AND J 03/14/2025 [id number] / / [id number] Shll Acet R3 3h Std 52mm - [id number] Implanted:Qty: 1 on 10/25/2023 by Valentin Acosta MD at [facility] Implant Right: Hip OSORIO AND NEPHEW 07/17/2033 [id number] / / [id number] Scrw Sph Hd Reflection 6.5x25mm - [id number] Implanted:Qty: 1 on 10/25/2023 by Valentin Acosta MD at [facility] Implant Right: Hip OSORIO AND NEPHEW 05/20/2033 [id number] / / [id number] Liner Acet R3 Xlpe 0d 37u88ws - [id number] Implanted:Qty: 1 on 10/25/2023 by Valentin Acosta MD at [facility] Implant Right: Hip OSORIO AND NEPHEW 07/04/2033 [id number] / / [id number] Stem Fem/Hip Polarstem W/Colr Std Sz3 - [id number] Implanted:Qty: 1 on 10/25/2023 by Valentin Acosta MD at [facility] Implant Right: Hip OSORIO AND NEPHEW 06/14/2030 [id number] / / [id number] Hd Fem/Hip Bioloxdelta R3 09/27 Md 36mm Pls4 - [id number] Implanted:Qty: 1 on 10/25/2023 by Valentin Acosta MD at [facility] Implant Right: Hip OSORIO AND NEPHEW 05/10/2033 [id number] / / [id number] Totl Hip Ambrocio Osorio Nephew - [id number] Implanted:Qty: 1 on 10/25/2023 by Valentin Acosta MD at [facility] Implant Right: Hip OSORIO AND NEPHEW CAPHIPTOTAL SN2 / / Procedures Procedure Name Priority Date/Time Associated Diagnosis Comments [place] ARTHROCENTESIS ASPIR&/INJ MAJOR JT/BURSA W/O US Routine 07/15/2025 10:42 AM EDT Tear of medial meniscus of right knee, unspecified tear type, unspecified whether old or current tear, initial encounter MRI KNEE RIGHT WO CONTRAST STAT 07/12/2025 10:44 AM EDT Acute pain of right knee XR HIP W OR WO PELVIS 2-3 VIEW RIGHT Routine 07/06/2025 2:12 PM EDT Status post total replacement of right hip XR KNEE 4+ VW RIGHT Routine 07/06/2025 2 :12 PM EDT Acute pain of right knee from Last 3 Months Results * [place] ARTHROCENTESIS ASPIR&/INJ MAJOR JT/BURSA W/O US (07/15/2025 10:42 AM EDT) Narrative Chirag Wall, MA - 07/15/2025 10:42 AM EDT Parul BeardCASTALIA, MA 07/15/2025 11:05 AM - Large Joint [...] to verify the correct patient, procedure, equipment, endoscopy support specialist and site/side marked as required. Patient was prepped and draped in the usual sterile fashion. us Valentin Acosta MD PROCEDURE/MINOR SURGICAL ORDER SVETA Final Result * MRI Knee Right Without Contrast (07/12/2025 [...] MD 07/14/2025 11:33 AM EDT Workstation ID: [id number] Narrative 07/14/2025 11:33 AM EDT MRI KNEE [...] MD 07/14/2025 11:33 AM EDT Workstation ID: [id number] us Valentin Acosta MD IM MRI ORDERABLES Final Resul t * XR [...] of loosening or failure. Valentin Acosta MD [facility] IMAGING ORDERAB LES Final Result * [...] No unusual bony features. Valentin Acosta MD [facility]AG[facility] ORDERAB LES Final Result from Last 3 Months Insurance MEDICARE A & B Member Subscriber Plan / Payer (Ef fective 2018-Present) Name:JeannetteAngelo Member ID:[id number] Relation to Subscriber:Self Name:Jeannette Angelo M Subscriber ID:[id number] Payer ID:[id number] Group ID:Not on file Type:Not on file Address: [address] [employer] Advance Directives * CPR (Attempt to Resuscitate) (Latest Code Status on File) Date Activated Date Inactivated Comments 06/08/2023 6:21 AM 10/25/2023 7:34 AM No physician signature needed for this code status. Samson as Signed. * CPR (Attempt to Resuscitate) Date Activated Date Inactivated Comments 06/04/2023 1:58 PM 06/06/2023 4:11 PM Question Answer Comments Code Status (Patient has no pulse and is not breathing): CPR (Attempt to Resuscitate) Medical Interventions (Patie nt has pulse or is breathing): Full Support Care Teams Stroke Belt Sander Operator Relationship Specialty Start Date End Date Ermelinda Tapia APRN [facility] [place] [facility] [address] [place] [address] PCP - General Family Medicine 05/29/23
== END 2025-08-25 23:59 | disposition home or self-care (01) ==
LOC: DIETICIAN 12:51
PROVIDERS: PCP Nurse Practitioner Family; Visit Provider Nurse Practitioner Family
DX: E11.9 Type 2 diabetes mellitus without complications (principal)
CPT/HCPCS: 97802